=== PATIENT | female | born 2000 | race Caucasian/White ===

== ENCOUNTER 2022-07-22 14:56 | Inpatient (IN) ==
--- NOTE | 2022-07-22 15:11 | ED Triage Note ---
Date of Service July 22, 2022 History of Present Illness This patient was briefly evaluated while in triage. An abbreviated physical exam was performed. This patient is a 22-year-old Female with past medical history of anxiety and depression who presents to the ED for evaluation of "I just don't want to be alive anymore". Plan to take prescription anxiety/depression medication. No homicidal ideation Physical Exam VITALS: Vitals are noted on the nurse's note and reviewed by myself. GENERAL: This is a 22 year old white female, in no acute distress, nondiaphoretic, well-developed well-nourished. SKIN: No obvious rashes, edema, erythema HEAD: Normocephalic atraumatic. EYES: Conjunctivae without injection, sclerae without icterus. NECK: No JVD. LUNGS: No retractions or accessory muscle use. MUSCULOSKELETAL: Normal gait. NEURO: Patient was alert and oriented to person place and time. No focal neurological deficits. Initial orders for labs and / or imaging were placed and patient was placed in the waiting area until a bed is available. Please see further documentation for the full ED course.
[2022-07-22 15:44] LABS: Basophils # (auto) 0.04 K/uL (0-0.2); Basophils % (auto) 0.4 %; Eosinophils # (auto) 0.19 K/uL (0-0.50); Eosinophils % (auto) 2.1 %; Hematocrit (blood only) 40.5 % (34.1-44.9); Hemoglobin 13.6 g/dl (12.0-16.0); Immature Granulocytes # (auto) 0.03 K/uL (0.00-0.02); Immature Granulocytes % (auto) 0.3 %; Lymphocytes # (auto) 2.29 K/uL (1.2-3.4); Lymphocytes % (auto) 25.4 %; Mean Corpuscular Hemoglobin 30.5 pg (25.0-34.0); Mean Corpuscular Hgb Conc 33.6 g/dL (32.0-36.0); Mean Corpuscular Volume 90.8 fL (80.0-100.0); Mean Platelet Volume 9.3 fL (9.4-12.3); Monocytes % (auto) 5.5 %; Neutrophils # (auto) 5.98 K/uL (1.4-6.5); Neutrophils % (auto) 66.3 %; Platelet Count 359 K/uL (130-400); RDW Coefficient of Variation 12.6 % (11.5-14.5); RDW Standard Deviation 41.7 fL (36.4-46.3); Red Blood Count 4.46 M/uL (3.93-5.22); White Blood Count 9.03 K/ul (4.8-10.8)
[2022-07-22 15:49] LABS: Appearance Urine Cloudy (Clear); Bacteria Urine Automated 1+ (Negative); Blood Urine Negative (Negative); Color Urine Dark Yellow; Epithelial Cell Urine Auto >30 /lpf (0-5); Glucose Urine UA Negative (Negative); Ketones Urine 1+ (Negative); Leukocyte Esterase Urine Trace (Negative); Nitrite Urine Negative (Negative); Protein Urine 1+ (Negative); Specific Gravity Urine 1.038 (1.000-1.030); Urobilinogen Urine Negative (Negative); pH Urine 5.5 (4.5-7.5)
[2022-07-22 15:54] LABS: Bilirubin Urine 1+ (Negative)
[2022-07-22 16:05] LABS: Albumin Level 4.9 gm/dl (3.4-5.0); BUN Creatinine Ratio 14.3 (10-20); Bilirubin,Total 2.1 mg/dl (0.2-1.0); Calcium 9.4 mg/dl (8.5-10.1); Creatinine Clr Calc Pharmacy 96.5 ml/min; Est GFR (African American) 141.5 ml/min; Est GFR (Non-African American) 122.1 ml/min; Globulin 2.5 gm/dl (2.5-4.0); Potassium 3.5 mmol/L (3.5-5.1); Pregnancy Test, Serum Negative (Negative); Total Protein 7.4 gm/dl (6.0-8.3)
[2022-07-22 16:06] LABS: Acetaminophen < 3 ug/ml (10-30); Salicylate < 3.0 mg/dl (3.0-30)
[2022-07-22 16:22] LABS: Amphetamines+Metham, Urine Neg (Neg); Barbiturates, Urine Neg (Neg); Benzodiazepine, Urine Pos (Neg); Cocaine, Urine Neg (Neg); MDMA (Ecstacy), Urine Pos (Neg); Methadone, Urine Neg (Neg); Opiate, Urine Neg (Neg); Phencyclidine, Urine Neg (Neg)
--- NOTE | 2022-07-22 17:04 | Emergency Department Note ---
Impression & Plan Suicidal ideation Admit to [facility]. ED Provider Note NAME: RAMONA LUO AGE: 22 SEX: F ARRIVES VIA: Walk-In INFORMANT: Patient ED PROVIDER(S): Christel Lin DO CHIEF COMPLAINT: Thoughts of overdosing PLAN: Disposition: Admit to 3 [facility]. Condition: Stable MEDICAL DECISION MAKING: This is a 22-year-old female patient with a history of depression who presents to the emergency department explaining that she had plans to overdose on trazodone and Zoloft. She did not carry through with her plan. He was medically cleared here in the emergency department. She is willing to admit herself voluntarily for inpatient psychiatric care. She was evaluated by staff from [facility]. and will be admitted to the unit. Triage Nursing notes reviewed and agree with them. Vital Signs: reviewed and unremarkable Differential diagnosis: Mood disorder, thought disorder, suicidal ideation, substance abuse Diagnostics interpreted by me: Laboratory studies: See below HPI: 22/F arrives for evaluation of suicidal thoughts. The patient had plans to overdose on trazodone and Zoloft 2 days ago. The patient has felt incr easingly depressed recently. 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 She has felt increasingly overwhelmed and had plans to overdose on her trazodone and Zoloft. The patient has been depressed as it is coming up on the anniversary of her stepfather's suicide. The patient explained to the senior sourcing manager that she decided not to as her last conversation with her father was when he was intoxicated. ROS: See above HPI for pertinent positives & negatives. A total of 6 systems reviewed and were otherwise negative. 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 HOME MEDICATIONS:See list ALLERGIES:None VITALS:See Below PHYSICAL EXAMINATION: HEENT: Head - normocephalic and atraumatic Pupils are equal, round, and reactive to light. Extraocular eye muscles are intact, and sclera are anicteric. Nose - moist nasal mucosa without discharge. Mouth - moist buccal mucosa. Oropharynx is nonerythematous and there is no tonsillar exudate or edema noted. Neck: Supple; no cervical lymphadenopathy or thyromegaly Heart: Regular rate and rhythm. There is a normal S1 and S2 with no murmurs, clicks, or gallops appreciated. Lungs: Clear to auscultation bilaterally with no wheezes, rales, or rhonchi. Abdomen: Soft, completely nontender, nondistended, with good bowel sounds. There are no palpable pulsatile masses or hepatosplenomegaly. There is no guarding, rigidity, or rebound noted. Extremities: No evidence of cyanosis, clubbing, or edema. There are easily palpable peripheral pulses. Skin: warm and dry with good turgor and no rashes. Psych: The patient appears depressed with a flat affect. She does admit to suicidal thoughts with a plan to overdose. ED COURSE: Times/Reassessments: 1555: Patient was evaluated in room A7. A complete history and physical was performed. Laboratory studies were drawn as above. The patient was evaluated by the ED psychiatric casework specialist. COVID testing was performed. She is willing to admit herself voluntarily for inpatient psychiatric care. She was evaluated by staff from [facility]. 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 Beliefs That Will Affect Care: None Feels Safe at Home: Yes Assistive Devices: None Allergies Allergies Allergy/AdvReac Type Severity Reaction Status Date / Time No Known Allergies Allergy Unverified 07/22/22 18:48 Home Meds Home Medications Medication Instructions Recorded Confirmed sertraline 100 mg tablet 100 mg PO HS 07/22/22 07/22/22 trazodone 50 mg tablet 50 mg PO HS 07/22/22 07/22/22 Results & Data (ED) Vital Signs Vital Signs - 24 hr 07/22/22 15:11 Temperature 36.6 C Temperature Source Temporal Artery Scan Pulse Rate 105 H Pulse Rhythm Regular Pulse Strength Normal Respiratory Rate 20 Respiratory Effort / Characteristics Non-Labored Spontaneous Respiratory Depth Normal Respiratory Pattern Regular Blood Pressure 129/83 Blood Pressure Mean 98 Blood Pressure Position Sitting Pulse Oximetry 98 Oxygen Delivery Method Room Air Sepsis Recent Fever Within 48 Hours No Sepsis New/Unexplained Change in Mental Status N/A Sepsis Action Taken by Nursing No Action Required Laboratory Data Result diagrams: 07/22/22 15:30 07/22/22 15:30 Lab Results 07/22/22 07/22/22 07/22/22 Range/Units 15:30 15:30 15:30 WBC 9.03 (4.8-10.8) K/ul RBC 4.46 (3.93-5.22) M/uL Hgb 13.6 (12.0-16.0) g/dl Hct 40.5 (34.1-44.9) % MCV 90.8 (80.0-100.0) fL MCH 30.5 (25.0-34.0) pg MCHC 33.6 (32.0-36.0) g/dL RDW Std Deviation 41.7 (36.4-46.3) fL RDW Coeff of Anne Marie 12.6 (11.5-14.5) % Plt Count 359 (130-400) K/uL MPV 9.3 L (9.4-12.3) fL Immature Gran % (Auto) 0.3 % Neut % (Auto) 66.3 % Lymph % (Auto) 25.4 % [place] % (Auto) 5.5 % Eos % (Auto) 2.1 % Baso % (Auto) 0.4 % Neut # (Auto) 5.98 (1.4-6.5) K/uL Lymph # (Auto) 2.29 (1.2-3.4) K/uL [place] # (Auto) 0.50 (0.24-0.82) K/uL Eos # (Auto) 0.19 (0-0.50) K/uL Baso # (Auto) 0.04 (0-0.2) K/uL Immature Gran # (Auto) 0.03 H (0.00-0.02) K/uL Sodium 137 (136-145) mmol/L Potassium 3.5 (3.5-5.1) mmol/L Chloride 103 (98-107) mmol/L Carbon Dioxide 26 (21-32) mmol/L Anion Gap 8 (3-11) BUN 10 (6-23) mg/dl Creatinine 0.70 (0.6-1.2) mg/dl Est Cr Clr Drug Dosing 96.5 ml/min Est GFR ( Amer) 141.5 ml/min Est GFR (Non-Af Amer) 122.1 ml/min BUN/Creatinine Ratio 14.3 (10-20) Glucose 85 (70-99(Fasting)) mg/dl Calcium 9.4 (8.5-10.1) mg/dl Total Bilirubin 2.1 H (0.2-1.0) mg/dl AST 13 (13-39) U/L ALT 10 (7-52) U/L Alkaline Phosphatase 46 (34-104) U/L Total Protein 7.4 (6.0-8.3) gm/dl Albumin 4.9 (3.4-5.0) gm/dl Globulin 2.5 (2.5-4.0) gm/dl Albumin/Globulin Ratio 2.0 (0.9-2) TSH (0.300-4.500) uIu/ml HCG, Qual Negative (Negative) Urine Color Urine Appearance (Clear) Urine pH (4.5-7.5) Ur Specific [place] (1.000-1.030) Urine Protein (Negative) Urine Glucose (UA) (Negative) Urine Ketones (Negative) Urine Blood (Negative) Urine Nitrite (Negative) Urine Bilirubin (Negative) Urine Urobilinogen (Negative) Ur Leukocyte Esterase (Negative) Urine WBC (Auto) (0-5) /hpf Urine RBC (Auto) (0-4) /hpf U Hyaline Cast (Auto) (0-5) /lpf U Epithel Cells (Auto) (0-5) /lpf Urine Bacteria (Auto) (Negative) Salicylates (3.0-30) mg/dl Urine Opiates Screen (Neg) Ur Methadone, Qual (Neg) Acetaminophen (10-30) ug/ml Urine Barbiturates (Neg) Ur Phencyclidine (PCP) (Neg) U Amphetamin/Meth Scrn (Neg) MDMA (Ecstasy) Screen (Neg) U Benzodiazepines Scrn (Neg) Ur Cocaine Metabolite (Neg) U Marijuana (THC) Screen (Neg) Ethyl Alcohol mg/dL (<10.0) mg/dl SARS-CoV-2, RNA, NAAT (NEGATIVE) 07/22/22 07/22/22 07/22/22 Range/Units 15:30 15:30 15:30 WBC (4.8-10.8) K/ul RBC (3.93-5.22) M/uL Hgb (12.0-16.0) g/dl Hct (34.1-44.9) % MCV (80.0-100.0) fL MCH (25.0-34.0) pg MCHC (32.0-36.0) g/dL RDW Std Deviation (36.4-46.3) fL RDW Coeff of Anne Marie (11.5-14.5) % Plt Count (130-400) K/uL MPV (9.4-12.3) fL Immature Gran % (Auto) % Neut % (Auto) % Lymph % (Auto) % [place] % (Auto) % Eos % (Auto) % Baso % (Auto) % Neut # (Auto) (1.4-6.5) K/uL Lymph # (Auto) (1.2-3.4) K/uL [place] # (Auto) (0.24-0.82) K/uL Eos # (Auto) (0-0.50) K/uL Baso # (Auto) (0-0.2) K/uL Immature Gran # (Auto) (0.00-0.02) K/uL Sodium (136-145) mmol/L Potassium (3.5-5.1) mmol/L Chloride (98-107) mmol/L Carbon Dioxide (21-32) mmol/L Anion Gap (3-11) BUN (6-23) mg/dl Creatinine (0.6-1.2) mg/dl Est Cr Clr Drug Dosing ml/min Est GFR ( Amer) ml/min Est GFR (Non-Af Amer) ml/min BUN/Creatinine Ratio (10-20) Glucose (70-99(Fasting)) mg/dl Calcium (8.5-10.1) mg/dl Total Bilirubin (0.2-1.0) mg/dl AST (13-39) U/L ALT (7-52) U/L Alkaline Phosphatase (34-104) U/L Total Protein (6.0-8.3) gm/dl Albumin (3.4-5.0) gm/dl Globulin (2.5-4.0) gm/dl Albumin/Globulin Ratio (0.9-2) TSH 1.817 (0.300-4.500) uIu/ml HCG, Qual (Negative) Urine Color Urine Appearance (Clear) Urine pH (4.5-7.5) Ur Specific [place] (1.000-1.030) Urine Protein (Negative) Urine Glucose (UA) (Negative) Urine Ketones (Negative) Urine Blood (Negative) Urine Nitrite (Negative) Urine Bilirubin (Negative) Urine Urobilinogen (Negative) Ur Leukocyte Esterase (Negative) Urine WBC (Auto) (0-5) /hpf Urine RBC (Auto) (0-4) /hpf U Hyaline Cast (Auto) (0-5) /lpf U Epithel Cells (Auto) (0-5) /lpf Urine Bacteria (Auto) (Negative) Salicylates < 3.0 L (3.0-30) mg/dl Urine Opiates Screen (Neg) Ur Methadone, Qual (Neg) Acetaminophen < 3 L (10-30) ug/ml Urine Barbiturates (Neg) Ur Phencyclidine (PCP) (Neg) U Amphetamin/Meth Scrn (Neg) MDMA (Ecstasy) Screen (Neg) U Benzodiazepines Scrn (Neg) Ur Cocaine Metabolite (Neg) U Marijuana (THC) Screen (Neg) Ethyl Alcohol mg/dL < 10.0 (<10.0) mg/dl SARS-CoV-2, RNA, NAAT (NEGATIVE) 07/22/22 07/22/22 07/22/22 Range/Units 15:30 15:30 15:30 WBC (4.8-10.8) K/ul RBC (3.93-5.22) M/uL Hgb (12.0-16.0) g/dl Hct (34.1-44.9) % MCV (80.0-100.0) fL MCH (25.0-34.0) pg MCHC (32.0-36.0) g/dL RDW Std Deviation (36.4-46.3) fL RDW Coeff of Anne Marie (11.5-14.5) % Plt Count (130-400) K/uL MPV (9.4-12.3) fL Immature Gran % (Auto) % Neut % (Auto) % Lymph % (Auto) % [place] % (Auto) % Eos % (Auto) % Baso % (Auto) % Neut # (Auto) (1.4-6.5) K/uL Lymph # (Auto) (1.2-3.4) K/uL [place] # (Auto) (0.24-0.82) K/uL Eos # (Auto) (0-0.50) K/uL Baso # (Auto) (0-0.2) K/uL Immature Gran # (Auto) (0.00-0.02) K/uL Sodium (136-145) mmol/L Potassium (3.5-5.1) mmol/L Chloride (98-107) mmol/L Carbon Dioxide (21-32) mmol/L Anion Gap (3-11) BUN (6-23) mg/dl Creatinine (0.6-1.2) mg/dl Est Cr Clr Drug Dosing ml/min Est GFR ( Amer) ml/min Est GFR (Non-Af Amer) ml/min BUN/Creatinine Ratio (10-20) Glucose (70-99(Fasting)) mg/dl Calcium (8.5-10.1) mg/dl Total Bilirubin (0.2-1.0) mg/dl AST (13-39) U/L ALT (7-52) U/L Alkaline Phosphatase (34-104) U/L Total Protein (6.0-8.3) gm/dl Albumin (3.4-5.0) gm/dl Globulin (2.5-4.0) gm/dl Albumin/Globulin Ratio (0.9-2) TSH (0.300-4.500) uIu/ml HCG, Qual (Negative) Urine Color Dark Yellow Urine Appearance Cloudy A (Clear) Urine pH 5.5 (4.5-7.5) Ur Specific [place] 1.038 H (1.000-1.030) Urine Protein 1+ H (Negative) Urine Glucose (UA) Negative (Negative) Urine Ketones 1+ H (Negative) Urine Blood Negative (Negative) Urine Nitrite Negative (Negative) Urine Bilirubin 1+ H (Negative) Urine Urobilinogen Negative (Negative) Ur Leukocyte Esterase Trace H (Negative) Urine WBC (Auto) 1-5 (0-5) /hpf Urine RBC (Auto) 5-10 H (0-4) /hpf U Hyaline Cast (Auto) 5-10 H (0-5) /lpf U Epithel Cells (Auto) >30 H (0-5) /lpf Urine Bacteria (Auto) 1+ H (Negative) Salicylates (3.0-30) mg/dl Urine Opiates Screen Neg (Neg) Ur Methadone, Qual Neg (Neg) Acetaminophen (10-30) ug/ml Urine Barbiturates Neg (Neg) Ur Phencyclidine (PCP) Neg (Neg) U Amphetamin/Meth Scrn Neg (Neg) MDMA (Ecstasy) Screen Pos H (Neg) U Benzodiazepines Scrn Pos H (Neg) Ur Cocaine Metabolite Neg (Neg) U Marijuana (THC) Screen Neg (Neg) Ethyl Alcohol mg/dL (<10.0) mg/dl SARS-CoV-2, RNA, NAAT NEGATIVE (NEGATIVE) Administered Medications Sertraline HCl (Sertraline Hcl 100 Mg Tablet) 150 mg PO DAVID Stop: 08/21/22 20:59 Last Admin: 07/22/22 22:11 Dose: 150 mg Documented By: VERNELL Trazodone HCl (Trazodone Hcl 50 Mg Tab) 50 mg PO DAVID Stop: 08/21/22 20:59 Last Admin: 07/22/22 22:12 Dose: 50 mg Documented By: VERNELL Discharge Plan Visit Data Chief Complaint: Mental Health Evaluation Stated Complaint: MENTAL HEALTH EVALUATION ED Provider: Christel Lin Discharge Problem: Suicidal ideation Patient Disposition: Home - Self-Care Discharge Instructions Interventions: ED Discharge Assessment Last Done: 07/22/22 17:54
[2022-07-22] MEDS ORDERED: SODIUM CHLORIDE 0.65% NA SOLN 45 ML (OCEAN) PRN (17:40)
[2022-07-22] MEDS ORDERED: ACETAMINOPHEN 325 MG TAB PO PRN (17:40)
[2022-07-22] MEDS ORDERED: hydrOXYzine HCl 25 MG TAB PO PRN ×2 (17:40)
[2022-07-22] MEDS ORDERED: BISMUTH SUBSALICYLATE LIQD 236 ML PO PRN (17:40)
[2022-07-22] MEDS ORDERED: ALUMINUM/MAGNESIUM SUSP 30 ML UDC PO PRN (17:40)
[2022-07-22] MEDS ORDERED: MAGNESIUM HYDROXIDE SUSP 30 ML UDC PO PRN (17:40)
[2022-07-22] MEDS: SERTRALINE HCL 100 MG TABLET PO SCH (22:11)
[2022-07-22] MEDS: traZODone HCL 50 MG TAB PO SCH (22:12)
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
[2022-07-23] MEDS: SERTRALINE HCL 100 MG TABLET PO SCH (22:06)
[2022-07-23] MEDS: traZODone HCL 50 MG TAB PO SCH (22:06)
--- NOTE | 2022-07-24 16:39 | Psychiatric Progress Note ---
Date of Service July 24, 2022 Impression / Recommendations Impression 22 yo female with a history of depression following the suicide of step father in mid-teens, worsening SI in the context of stress of school, isolation from friends/family, and anniversary of stepfather's . (1) Major depression, recurrent: Plan 07/24/22: continue current medication and treatment plan. 07/23/22: The patient was admitted to the [facility] ([facility] mental health unit) on q15 min checks (behavioral with suicide precautions) for safety. The patient will participate in group, recreational, and milieu therapies and will be offered additional individual and family sessions as clinically appropriate. Risks/benefits/alternatives reviewed re: current medications. She agrees to increase Zoloft 150 mg po daily and continue trazodone. 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 Chief Complaint "not ready to deal with my family yet." Review of Systems Sleep Information Total Hours of Sleep: 6.5 Meal Information Percent Meal Consumed - Breakfast: 50 Percent Meal Consumed - Lunch: 50 Percent Meal Consumed - Dinner: 75 Subjective Subjective Patient was seen & assessed and interval progress reviewed with treatment team. Cooperative with unit routine/meds. Denies side effects. States has had some mild headache but attributes to change in caffeine intake in hospital. Physical Exam Psychiatric Orientation: alert and oriented x 3 Apperance: appropriately dressed and appropriately groomed Eye Contact: good eye contact Motor Behavior: no abnormal motor movements Speech: normal rate/rhythm/volume of speech Affect: + depressed affect Mood: + depressed mood Thought Process: goal directed thought process Thought Content: reality based without delusions Suicidal Thoughts: denies suicidal plan (on unit) and denies suicidal intent; + reports suicidal thoughts Homicidal Thoughts: denies homicidal thoughts Hallucinations: no auditory hallucinations and no visual hallucinations Cognition: attention grossly intact and language grossly intact Estimated Intelligence: consistent with education level Insight: + fair insight Judgement: + limited judgement Vital Signs (Past 24 Hours) Last Vital Signs Temp 36.8 C 07/24/22 06:35 Pulse 82 07/24/22 06:36 Resp 16 07/24/22 06:35 BP 98/60 L 07/24/22 06:36 Pulse Ox 99 07/22/22 18:27 O2 Del Method 07/22/22 18:27 Results & Data ([facility]) Current Inpatient Medications Current Inpatient Medications: Current Inpatient Medications Acetaminophen (Acetaminophen 325 Mg Tab) 650 mg PO Q4H PRN PRN Reason: Headache or Minor Fever Stop: 08/21/22 17:39 Al Hydrox/Mg Hydrox/Simethicone (Aluminum/Magnesium Susp 30 Ml Udc) 30 ml PO Q4H PRN PRN Reason: GI Upset Stop: 08/21/22 17:39 Bismuth Subsalicylate (Bismuth Subsalicylate Liqd 236 Ml) 15 ml PO PRN PRN PRN Reason: Loose Stool Stop: 08/21/22 17:39 Hydroxyzine HCl (Hydroxyzine Hcl 25 Mg Tab) 50 mg PO HSZ PRN PRN Reason: Insomnia Stop: 08/21/22 17:39 Hydroxyzine HCl (Hydroxyzine Hcl 25 Mg Tab) 25 mg PO Q4H PRN PRN Reason: Anxiety Stop: 08/21/22 17:39 Magnesium Hydroxide (Magnesium Hydroxide Susp 30 Ml Udc) 30 ml PO DAILY PRN PRN Reason: Constipation Stop: 08/21/22 17:39 Sertraline HCl (Sertraline Hcl 100 Mg Tablet) 150 mg PO HS DAVID Stop: 08/21/22 20:59 Last Admin: 07/23/22 22:06 Dose: 150 mg Sodium Chloride (Sodium Chloride 0.65% Na Soln 45 Ml ([employer])) 1 - 2 sprays NA PRN PRN PRN Reason: Nasal Dryness/Congestion Stop: 08/21/22 17:39 Trazodone HCl (Trazodone Hcl 50 Mg Tab) 50 mg PO HS DAVID Stop: 08/21/22 20:59 Last Admin: 07/23/22 22:06 Dose: 50 mg Mental Health & Subst Abuse Tx Psychiatrist Name of Psychiatrist: [facility] Psychiatrist's Therapist Name of Therapist: Marito Parnell Therapist's Post Discharge Appointments Primary Care Physician Name Of Family Doctor: PAMELA
[2022-07-24] MEDS: traZODone HCL 50 MG TAB PO SCH (22:12)
[2022-07-24] MEDS: SERTRALINE HCL 100 MG TABLET PO SCH (22:12)
--- NOTE | 2022-07-25 13:45 | Psychiatric Progress Note ---
Date of Service July 25, 2022 Impression / Recommendations Impression 22 yo female with a history of depression following the suicide of step father in mid-teens, worsening SI in the context of stress of school, isolation from friends/family, and anniversary of stepfather's . 07/24/22: ongoing ambivalence about life, excessive guilt about not checking on step father the day he . (1) Major depression, recurrent: Plan 07/25/22: consider Zoloft titration vs. augmentation, patient prefers to discuss tomorrow. Is anxious about classes. 07/24/22: continue current medication and treatment plan. 07/23/22: The patient was admitted to the [facility] ([facility] mental [facility] unit) on q15 min checks (behavioral with suicide precautions) for safety. The patient will participate in group, recreational, and milieu therapies and will be offered additional individual and family sessions as clinically appropriate. Risks/benefits/alternatives reviewed re: current medications. She agrees to increase Zoloft 150 mg po daily and continue trazodone. 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 Chief Complaint "I called my dad" Review of Systems Sleep Information Total Hours of Sleep: 6.5 Meal Information Percent Meal Consumed - Breakfast: 75 Percent Meal Consumed - Lunch: 40 Percent Meal Consumed - Dinner: 100 Subjective Subjective Patient was seen & assessed and interval progress reviewed with nursing and social work. today is anniversary of step father's . She still doesn't see herself as wanting to be alive, "I play out alot of scenarios in my head>' and admits that it seems easier to be . Denies any intent to harm self on unit. tolerating medications. Physical Exam Psychiatric Orientation: alert and oriented x 3 Apperance: appropriately dressed and appropriately groomed Eye Contact: good eye contact Motor Behavior: no abnormal motor movements Speech: normal rate/rhythm/volume of speech Affect: + depressed affect Mood: + depressed mood Thought Process: goal directed thought process Thought Content: reality based without delusions Suicidal Thoughts: denies suicidal plan (on unit) and denies suicidal intent; + reports suicidal thoughts Homicidal Thoughts: denies homicidal thoughts Hallucinations: no auditory hallucinations and no visual hallucinations Cognition: attention grossly intact and language grossly intact Estimated Intelligence: consistent with education level Insight: + fair insight Judgement: + limited judgement Vital Signs (Past 24 Hours) Last Vital Signs Temp 36.8 C 07/25/22 06:44 Pulse 80 07/25/22 06:44 Resp 16 07/25/22 06:44 BP 99/63 L 07/25/22 06:44 Pulse Ox 99 07/22/22 18:27 O2 Del Method 07/22/22 18:27 Results & Data ([facility]) Current Inpatient Medications Current Inpatient Medications: Current Inpatient Medications Acetaminophen (Acetaminophen 325 Mg Tab) 650 mg PO Q4H PRN PRN Reason: Headache or Minor Fever Stop: 08/21/22 17:39 Al Hydrox/Mg Hydrox/Simethicone (Aluminum/Magnesium Susp 30 Ml Udc) 30 ml PO Q4H PRN PRN Reason: GI Upset Stop: 08/21/22 17:39 Bismuth Subsalicylate (Bismuth Subsalicylate Liqd 236 Ml) 15 ml PO PRN PRN PRN Reason: Loose Stool Stop: 08/21/22 17:39 Hydroxyzine HCl (Hydroxyzine Hcl 25 Mg Tab) 50 mg PO HSZ PRN PRN Reason: Insomnia Stop: 08/21/22 17:39 Hydroxyzine HCl (Hydroxyzine Hcl 25 Mg Tab) 25 mg PO Q4H PRN PRN Reason: Anxiety Stop: 08/21/22 17:39 Magnesium Hydroxide (Magnesium Hydroxide Susp 30 Ml Udc) 30 ml PO DAILY PRN PRN Reason: Constipation Stop: 08/21/22 17:39 Sertraline HCl (Sertraline Hcl 100 Mg Tablet) 150 mg PO HS DAVID Stop: 08/21/22 20:59 Last Admin: 07/24/22 22:12 Dose: 150 mg Sodium Chloride (Sodium Chloride 0.65% Na Soln 45 Ml ([place])) 1 - 2 sprays NA PRN PRN PRN Reason: Nasal Dryness/Congestion Stop: 08/21/22 17:39 Trazodone HCl (Trazodone Hcl 50 Mg Tab) 50 mg PO HS DAVID Stop: 08/21/22 20:59 Last Admin: 07/24/22 22:12 Dose: 50 mg Mental Health & Subst Abuse Tx Psychiatrist Name of Psychiatrist: [facility] Psychiatrist's Therapist Name of Therapist: Marito Parnell Therapist's Post Discharge Appointments Primary Care Physician Name Of Family Doctor: Albert
[2022-07-25] MEDS: traZODone HCL 50 MG TAB PO SCH (21:56)
[2022-07-25] MEDS: SERTRALINE HCL 100 MG TABLET PO SCH (21:57)
--- NOTE | 2022-07-26 12:35 | Discharge Summary ---
Date of Service July 26, 2022 History of Present Illness The patient contacted [facility] re: her SI with plan to OD on trazodone and Zoloft and was directed to the ED. She told ED CM that she called her father a few nights ago to say goodbye but ultimately decided she didn't want that to be their last interaction. It should be noted that her step-father committed suicide when she was 14 yo and 07/25 is the anniversary of his . She has endorsed classic symptoms of depression including anergia, anhedonia, crying spells, sleep disturbance and changes in appetite. She feels her anxiety is worse currently but at baseline only has mild performance anxiety "like anybody before a speech." The patient denied any manic episodes but reports problems falling asleep without trazodone. She had reported a 40 lb weight loss but sounds like most was during undergrad due to combination of walking during study abroad in [place] in 2019 and later due to nervous stomach. She denies GERD or intentional restricting or other ED behaviors. Physical Exam Psychiatric See admission H&P and DOD assessment. Vital Signs (Past 24 Hours) Last Vital Signs Temp 36.8 C 07/26/22 06:46 Pulse 92 H 07/26/22 06:47 Resp 16 07/26/22 06:46 BP 97/61 L 07/26/22 06:47 Pulse Ox 99 07/22/22 18:27 O2 Del Method 07/22/22 18:27 Principal Diagnosis major depressive disorder Psychiatric Data See daily stay summary. 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 Medication changes included titration of Zoloft to 150 mg daily and they tolerated this well. A family session was held with her local support and safety plan was completed prior to discharge which included her only having 1 week supply of meds at time. Day of Discharge Assessment Today the patient voices readiness for discharge. They note improvement in mood and deny thoughts to harm self or others. Thoughts remain organized and they are improved from admission. There is no evidence of psychosis. They agree to take mediations as prescribed and keep follow-up appointments. They are stable for discharge to outpatient level of care. Transition of Care Transition Of Care Record: was reviewed with the patient Advance Directives Advance Directives Information Provided: Yes Advance Directives: No Mental Health Advance Directive: No Advance Directives on File: No Living Will: No Power of Rubber Goods Repairer: No Advance Directives Reason:: Declines as Mental Health Visit. Suicide Risk Level Suicide Risk Level Comments: Suicide risk at discharge is deemed low as the patient is no longer requiring 24-hr monitoring, has a safety plan, and is free of suicidal ideation at discharge. Risk Factors Assessment : Yes Do You Have Access To A Gun?: No Mental Health Diagnoses: Yes Family History of Suicide: Yes (step father (not biologic but traumatic)) Previous Psychiatric Hospitalization: No Protective Factors Assessment Supportive Family: Yes Tobacco Cessation at Discharge Tobacco Cessation Medication Prescribed at Discharge: Not Applicable/Non-Smoker Total Time Total Time Spent: Greater Than 30 Minutes Total Time Includes: Examination of the patient, Discharge Planning and Medication Reconciliation Discharge Data Lab Results 07/22/22 07/22/22 07/22/22 15:30 15:30 15:30 WBC 9.03 RBC 4.46 Hgb 13.6 Hct 40.5 MCV 90.8 MCH 30.5 MCHC 33.6 RDW Std Deviation 41.7 RDW Coeff of Anne Marie 12.6 Plt Count 359 MPV 9.3 L Immature Gran % (Auto) 0.3 Neut % (Auto) 66.3 Lymph % (Auto) 25.4 Worth % (Auto) 5.5 Eos % (Auto) 2.1 Baso % (Auto) 0.4 Neut # (Auto) 5.98 Lymph # (Auto) 2.29 Worth # (Auto) 0.50 Eos # (Auto) 0.19 Baso # (Auto) 0.04 Immature Gran # (Auto) 0.03 H Sodium 137 Potassium 3.5 Chloride 103 Carbon Dioxide 26 Anion Gap 8 BUN 10 Creatinine 0.70 Est Cr Clr Drug Dosing 96.5 Est GFR ( Amer) 141.5 Est GFR (Non-Af Amer) 122.1 BUN/Creatinine Ratio 14.3 Glucose 85 Calcium 9.4 Total Bilirubin 2.1 H AST 13 ALT 10 Alkaline Phosphatase 46 Total Protein 7.4 Albumin 4.9 Globulin 2.5 Albumin/Globulin Ratio 2.0 TSH HCG, Qual Negative Urine Color Urine Appearance Urine pH Ur Specific [place] Urine Protein Urine Glucose (UA) Urine Ketones Urine Blood Urine Nitrite Urine Bilirubin Urine Urobilinogen Ur Leukocyte Esterase Urine WBC (Auto) Urine RBC (Auto) U Hyaline Cast (Auto) U Epithel Cells (Auto) Urine Bacteria (Auto) Salicylates Urine Opiates Screen Ur Methadone, Qual Acetaminophen Urine Barbiturates Ur Phencyclidine (PCP) U Amphetamin/Meth Scrn MDMA (Ecstasy) Screen U Benzodiazepines Scrn Ur Cocaine Metabolite U Marijuana (THC) Screen Ethyl Alcohol mg/dL SARS-CoV-2, RNA, NAAT 07/22/22 07/22/22 07/22/22 15:30 15:30 15:30 WBC RBC Hgb Hct MCV MCH MCHC RDW Std Deviation RDW Coeff of Anne Marie Plt Count MPV Immature Gran % (Auto) Neut % (Auto) Lymph % (Auto) Worth % (Auto) Eos % (Auto) Baso % (Auto) Neut # (Auto) Lymph # (Auto) Worth # (Auto) Eos # (Auto) Baso # (Auto) Immature Gran # (Auto) Sodium Potassium Chloride Carbon Dioxide Anion Gap BUN Creatinine Est Cr Clr Drug Dosing Est GFR ( Amer) Est GFR (Non-Af Amer) BUN/Creatinine Ratio Glucose Calcium Total Bilirubin AST ALT Alkaline Phosphatase Total Protein Albumin Globulin Albumin/Globulin Ratio TSH 1.817 HCG, Qual Urine Color Urine Appearance Urine pH Ur Specific [place] Urine Protein Urine Glucose (UA) Urine Ketones Urine Blood Urine Nitrite Urine Bilirubin Urine Urobilinogen Ur Leukocyte Esterase Urine WBC (Auto) Urine RBC (Auto) U Hyaline Cast (Auto) U Epithel Cells (Auto) Urine Bacteria (Auto) Salicylates < 3.0 L Urine Opiates Screen Ur Methadone, Qual Acetaminophen < 3 L Urine Barbiturates Ur Phencyclidine (PCP) U Amphetamin/Meth Scrn MDMA (Ecstasy) Screen U Benzodiazepines Scrn Ur Cocaine Metabolite U Marijuana (THC) Screen Ethyl Alcohol mg/dL < 10.0 SARS-CoV-2, RNA, NAAT 07/22/22 07/22/22 07/22/22 15:30 15:30 15:30 WBC RBC Hgb Hct MCV MCH MCHC RDW Std Deviation RDW Coeff of Anne Marie Plt Count MPV Immature Gran % (Auto) Neut % (Auto) Lymph % (Auto) Worth % (Auto) Eos % (Auto) Baso % (Auto) Neut # (Auto) Lymph # (Auto) Worth # (Auto) Eos # (Auto) Baso # (Auto) Immature Gran # (Auto) Sodium Potassium Chloride Carbon Dioxide Anion Gap BUN Creatinine Est Cr Clr Drug Dosing Est GFR ( Amer) Est GFR (Non-Af Amer) BUN/Creatinine Ratio Glucose Calcium Total Bilirubin AST ALT Alkaline Phosphatase Total Protein Albumin Globulin Albumin/Globulin Ratio TSH HCG, Qual Urine Color Dark Yellow Urine Appearance Cloudy A Urine pH 5.5 Ur Specific [place] 1.038 H Urine Protein 1+ H Urine Glucose (UA) Negative Urine Ketones 1+ H Urine Blood Negative Urine Nitrite Negative Urine Bilirubin 1+ H Urine Urobilinogen Negative Ur Leukocyte Esterase Trace H Urine WBC (Auto) 1-5 Urine RBC (Auto) 5-10 H U Hyaline Cast (Auto) 5-10 H U Epithel Cells (Auto) >30 H Urine Bacteria (Auto) 1+ H Salicylates Urine Opiates Screen Neg Ur Methadone, Qual Neg Acetaminophen Urine Barbiturates Neg Ur Phencyclidine (PCP) Neg U Amphetamin/Meth Scrn Neg MDMA (Ecstasy) Screen Pos H U Benzodiazepines Scrn Pos H Ur Cocaine Metabolite Neg U Marijuana (THC) Screen Neg Ethyl Alcohol mg/dL SARS-CoV-2, RNA, NAAT NEGATIVE Hospital Course (1) Major depression, recurrent: Plan 07/25/22: consider Zoloft titration vs. augmentation, patient prefers to discuss tomorrow. Is anxious about classes. 07/24/22: continue current medication and treatment plan. 07/23/22: The patient was [facility] mental [facility] unit) on q15 min checks (behavioral with suicide precautions) for safety. The patient will participate in group, recreational, and milieu therapies and will be offered additional individual and family sessions as clinically appropriate. Risks/benefits/alternatives reviewed re: current medications. She agrees to increase Zoloft 150 mg po daily and continue trazodone. Mental Health & Subst Abuse Tx Psychiatrist Name of Psychiatrist: [facility] Psychiatrist's Date of Appointment with Psychiatrist: 08/08/22 Time of Appointment with Psychiatrist: 10:15 AM Psychiatric Appointment Comment: [address] [facility] [place] [address] Therapist Name of Therapist: [facility] Therapist's Date of Therapist Appointment: 08/02/22 Time of Therapist Appointment: 9:00 AM Therapy Appointment Comment: [place] [id number] Post Discharge Appointments Primary Care Physician Name Of Family Doctor: [facility] Primary Care Time of Appointment with PCP: Follow up with PCP as needed. [facility] Tobacco Cessation Medication Prescribed at Discharge: Not Applicable/Non-Smoker Other #1: Name of Aftercare Appointment: [facility] Phone Number of Aftercare Appointment: [phone] Date of Aftercare Appointment: 07/29/22 Time of Aftercare Appointment: 9:30 AM Aftercare Appointment Comment: Via Zoom - check [facility] email for link. Discharge Plan Discharge Items Patient Disposition: Home - Self-Care Reason For Visit: MDD Discharge Diagnosis: major depressive disorder Activity: Resume your previous activity Non-emergency contact: Primary Care Provider Call non-emergency contact if: you have any medication questions and your symptoms worsen Follow-up/Referrals: PCP,NO [Primary Care Provider] - Diet: Regular Addtl Attending Provider Instructions: SPECIAL CARE INSTRUCTIONS: 1. Follow through with your scheduled aftercare appointments. If unable to keep an appointment, please call to reschedule. 2. Take your medication only as prescribed. Medication should not be changed or stopped without the approval of your doctor. In the event of worsening symptoms or concerns about side effects, contact your doctor immediately. 3. Utilize new healthy coping skills, anger management skills, and stress management skills learned during your hospitalization. Journal feelings and process them with a support person. Identify stressors or situations that may result in relapse, deterioration or inappropriate behaviors and develop a plan to deal with those issues. 4. If your coping skills are ineffective and you are in crisis, contact your outpatient providers for direction. If unable to reach your providers, please call the [facility] CRISIS LINE AT , go to the [facility] walk-in center at [address], [address], [place], or go to the closest Emergency Room. 5. Avoid alcohol and un-prescribed drugs. 6. You have been provided with the Mental Health Advance Directives Pamphlet for your review. 7. Your condition is stable for discharge to outpatient level of care, but recovery is an ongoing process. Ifthoughts to harm yourself or others return, follow the safety plan developed during your stay. Planning for a safe return home includes securing weapons. Our treatment team recommends weaponsbe removed from the home until your outpatient provider reassesses your progress. In rare cases where the items themselvescannot be removed, guns and ammunitionshould be secured separatelyand keys stored by a reliable personoutside of the home. If you were admitted on an involuntary commitment, the police or other legal authorities may be involved in this process. AFTERCARE APPOINTMENTS: * Please call your insurance company prior to your scheduled appointment to confirm your aftercare providers are covered. Take your insurance information to your ap pointments. WHO TO CALL AND WHEN: Medical Emergencies: For questions or emergencies related to your hospital stay, please contact the Inpatient Behavioral Health Unit at [phone]. A swimming coach is on-call 02/06 for the Behavioral Health Unit for emergencies At any time you feel your situation is an emergency, you may also call 911 immediately. Pending Studies at Discharge: No Stand-Alone Forms: My [facility] Taskmit, Smoking Cessation Medications and DC Order Prescriptions: New sertraline 100 mg Tablet 150 mg PO HS 30 Days Qty: 45 0RF Continued trazodone 50 mg tablet 50 mg PO HS Qty: 1 0RF Discontinued sertraline 100 mg tablet 100 mg PO HS Discharge Orders: Discharge Order (Routine); Ordered 07/26/22 Ordered By: Carmen Campbell Admission Data Admit Date/Time: 07/22/22 18:01 Attending Provider: Carmen Campbell Admit Provider: Carmen Campbell Primary Care Provider: PCP,NO Other Interventions: Discharge Summary Assessment (RN) Last Done: 07/26/22 14:59 PSY Interdisciplinary Discharge Planning Last Done: 07/26/22 15:43 Coding Level of Care Code 50075 D/C day mgmt > 30 min Diagnoses Major depression, recurrent F33.9
== END 2022-07-26 15:50 | disposition home or self-care (01) | DRG 885 ==
LOC: ED 14:56 → 3S 18:01

== ENCOUNTER 2023-07-03 18:57 | Inpatient (IN) ==
--- NOTE | 2023-07-03 19:15 | Emergency Department Note ---
Impression & Plan Intentional overdose, Suicidal ideation, Anxiety, QT prolongation ED Provider Note NAME: RAMONA LUO AGE: 23 SEX: F : 2000 ARRIVES VIA: Walk-In INFORMANT: [Patient][, ] ED PROVIDER(S): [Larry Gonzalez MD] CHIEF COMPLAINT: Overdose MEDICAL DECISION MAKING: Patient presents due to concern for overdose of 16 to 18 total of 50 mg extended release trazodone. I did speak with poison control who stated the patient would need at least 12- hour observation. Magnesium for prolonged QTc. The patient's QTc is 499 and th e patient was ordered 2 g of magnesium to be given over 1 hour. Repeat EKG pending. The patient did have an IV established blood work is obtained along with urinalysis urine drug screen as well as toxicology screens. Patient has a normal white count H&H and platelet count. Mild hypokalemia. Alize ctrolytes are unremarkable. TSH is elevated but free T4 is normal. Urinalysis shows ketones. The patient did receive IV fluids. I did speak with the on-call hospitalist Dr. Mota given the patient's prolonged QT trazodone overdose and magnesium administration. The patient was ordered additional 1 g of IV magnesium as the patient's QTc was still prolonged on repeat EKG Prior /Outside records reviewed: [none] Differential diagnosis: Mood disorder, infection, hypoglycemia, electrolyte abnormalities, cardiac sources, intracerebral event, toxicologic, trauma, neurologic, as well as other pathologies. Diagnostics, as interpreted by me: ECG: Normal sinus rhythm, rate of 76, normal IL and QRS, prolonged QTc of 499, normal axis no ST elevations Repeat EKG interpreted by me Normal sinus rhythm, rate of 73, normal IL QRS, prolonged QTc. No ST elevations. Cardiac monitoring: An order was placed for continuous cardiac monitoring. The monitor shows a rate of 78 with sinus rhythm. [Patient was placed on pulse oximetry] Medical decision rules: [none] Imaging studies: See below HPI: Patient presents due to concern for overdose. The patient states that she took approximately 16 to 1850 mg extended release trazodone about an hour prior to arrival. Patient denies any chest pains or shortness of breath. The patient states that she did not do with the intent to kill herself but she also has been more apathetic about life in general. Patient has prior history of suicida l ideation but has never attempted or acted on anything before. 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 The patient was in [facility] working a lot from over the summer. Patient denies taking anything else inappropriately today. She denies any alcohol tobacco or drug use. The patient calls to say "moment of weakness." Patient did have a therapy appointment tomorrow. Patient has been inpatient before and had been here before 1 year ago to 3 S. patient does feel safe at home. She states that her sleep is appropriate but appetite is poor. She denies any HI or AVH. PAST MEDICAL HISTORY: [See Below] PAST SURGICAL HISTORY: [See Below] SOCIAL HISTORY: [See Below] HOME MEDICATIONS: [See Below] ALLERGIES: [See Below] VITALS: [See Below] PHYSICAL EXAMINATION: GENERAL: NAD, non-toxic. EYE EXAM: Normal conjunctiva. PERRL, no anisocoria and EOM's grossly intact w/o pain. OROPHARYNX: Moist mucus membranes, grossly normal dentition. NECK: Supple, no nuchal rigidity, no adenopathy, non-tender. No signs of meningismus. FROM of the neck with good chin to chest and neck extension. No stridor. LUNGS: Clear to auscultation. Normal chest wall mechanics. HEART: NSR, no MRG. ABDOMEN: Abdomen soft, non-tender, no masses, no rebound or guarding. BACK: No CVA TTP. SKIN: No rashes and no bruising. UPPER EXTREMITIES: Upper extremities are grossly normal. LOWER EXTREMITIES: Grossly normal, no edema. NEURO EXAM: A&O x3, cranial nerves II-XII grossly intact, normal speech, moves all 4 extremities. Psych: Denies SI HI or AVH. Past Med/Surg History Medical History Anxiety Major depression, recurrent Surgical History No pertinent past surgical history Family History Other Family history non-contributory Social History Smoking Status: Never smoker Hx Alcohol Use: Yes Hx Substance Use: No Preferred Language: Slovak Communication Ability: Effective Manager Required: No Beliefs That Will Affect Care: None Current Living Situation: Other Current Living Situation Comment: college student Feels Safe at Home: Yes Assistive Devices: None Allergies Allergies Allergy/AdvReac Type Severity Reaction Status Date / Time No Known Allergies Allergy Unverified 07/22/22 18:48 Home Meds Home Medications Medication Instructions Recorded Confirmed bupropion HCl 100 mg tablet,12 hr 100 mg PO QAM 07/03/23 07/03/23 sustained-release buspirone 10 mg tablet 10 mg PO BID 07/03/23 07/03/23 sertraline 100 mg tablet 200 mg PO DAILY 07/03/23 07/03/23 Previous Rx's Medication Instructions Recorded trazodone 50 mg tablet 50 mg PO HS #1 tab 07/26/22 Results & Data (ED) Vital Signs Vital Signs - 24 hr 07/03/23 19:00 07/03/23 19:12 07/03/23 19:12 Temperature 36.6 C Temperature Source Temporal Artery Scan Pulse Rate 101 H 76 Pulse Rate [Apical] 71 Respiratory Rate 18 17 17 Respiratory Effort / Characteristics Non-Labored Spontaneous Non-Labored Respiratory Depth Normal Normal Respiratory Pattern Regular Regular Blood Pressure 128/87 Blood Pressure [Left Arm] 115/76 Blood Pressure Mean 100 Blood Pressure Mean [Left Arm] 89 Blood Pressure Position Semi-fowlers Pulse Oximetry 98 99 99 Oxygen Delivery Method Room Air Room Air Room Air Sepsis Recent Fever Within 48 Hours No Sepsis New/Unexplained Change in Mental Status N/A Sepsis Action Taken by Nursing No Action Required 07/03/23 19:51 07/03/23 20:00 07/03/23 20:30 Temperature Temperature Source Pulse Rate 72 80 70 Pulse Rate [Apical] Respiratory Rate 13 20 17 Respiratory Effort / Characteristics Respiratory Depth Respiratory Pattern Blood Pressure 113/68 99/61 L Blood Pressure [Left Arm] Blood Pressure Mean 83 73 Blood Pressure Mean [Left Arm] Blood Pressure Position Pulse Oximetry 99 97 96 Oxygen Delivery Method Room Air Room Air Room Air Sepsis Recent Fever Within 48 Hours Sepsis New/Unexplained Change in Mental Status Sepsis Action Taken by Nursing 07/03/23 21:00 Temperature Temperature Source Pulse Rate 83 Pulse Rate [Apical] Respiratory Rate 22 Respiratory Effort / Characteristics Respiratory Depth Respiratory Pattern Blood Pressure 114/64 Blood Pressure [Left Arm] Blood Pressure Mean 80 Blood Pressure Mean [Left Arm] Blood Pressure Position Pulse Oximetry 96 Oxygen Delivery Method Room Air Sepsis Recent Fever Within 48 Hours Sepsis New/Unexplained Change in Mental Status Sepsis Action Taken by [facility] Medications Current Medication List: was personally reviewed by me Laboratory Data Attestation: I reviewed the patient's lab results. 07/03/23 19:35 07/03/23 19:35 Lab Results 07/03/23 07/03/23 07/03/23 Range/Units 19:13 19:13 19:35 WBC 8.94 (4.8-10.8) K/ul RBC 4.44 (4.20-5.40) M/uL Hgb 14.0 (12.0-16.0) g/dl Hct 40.6 (37.0-47.0) % MCV 91.4 (80.0-100.0) fL MCH 31.5 (25.0-34.0) pg MCHC 34.5 (32.0-36.0) g/dL RDW Std Deviation 41.1 (36.4-46.3) fL RDW Coeff of Anne Marie 12.1 (11.5-14.5) % Plt Count 294 (130-400) K/uL MPV 9.7 (9.4-12.4) fL Immature Gran % (Auto) 0.2 % Neut % (Auto) 62.8 % Lymph % (Auto) 28.0 % [place] % (Auto) 3.7 % Eos % (Auto) 4.9 % Baso % (Auto) 0.4 % Neut # (Auto) 5.61 (1.40-6.50) K/uL Lymph # (Auto) 2.50 (1.20-3.40) K/uL [place] # (Auto) 0.33 (0.11-0.59) K/uL Eos # (Auto) 0.44 (0.00-0.50) K/uL Baso # (Auto) 0.04 (0.00-0.20) K/uL Immature Gran # (Auto) 0.02 (0.01-0.20) K/uL Sodium (136-145) mmol/L Potassium (3.5-5.1) mmol/L Chloride (98-107) mmol/L Carbon Dioxide (21-32) mmol/L Anion Gap (3-11) BUN (6-23) mg/dl Creatinine (0.6-1.2) mg/dl Est Cr Clr Drug Dosing ml/min Est GFR ( Amer) ml/min Est GFR (Non-Af Amer) ml/min BUN/Creatinine Ratio (10-20) Glucose (70-99(Fasting)) mg/dl Calcium (8.6-10.3) mg/dl Magnesium (1.7-2.4) mg/dl Total Bilirubin (0.2-1.0) mg/dl AST (13-39) U/L ALT (7-52) U/L Alkaline Phosphatase (34-104) U/L Total Protein (6.0-8.3) gm/dl Albumin (3.4-5.0) gm/dl Globulin (2.5-4.0) gm/dl Albumin/Globulin Ratio (0.9-2) TSH (0.300-4.500) uIu/ml Free T4 (0.61-1.60) ng/dl Urine Color Dark Yellow Urine Appearance Clear (Clear) Urine pH 6.5 (4.5-7.5) Ur Specific [place] 1.037 H (1.000-1.030) Urine Protein 1+ H (Negative) Urine Glucose (UA) Negative (Negative) Urine Ketones 1+ H (Negative) Urine Blood Negative (Negative) Urine Nitrite Negative (Negative) Urine Bilirubin Negative (Negative) Urine Urobilinogen Negative (Negative) Ur Leukocyte Esterase Negative (Negative) Urine WBC (Auto) 1-5 (0-5) /hpf Urine RBC (Auto) 0-4 (0-4) /hpf U Hyaline Cast (Auto) 1-5 (0-5) /lpf U Epithel Cells (Auto) >30 H (0-5) /lpf Urine Bacteria (Auto) Negative (Negative) Salicylates (3.0-30) mg/dl Urine Opiates Screen Neg (Neg) Ur Methadone, Qual Neg (Neg) Acetaminophen (10-30) ug/ml Urine Barbiturates Neg (Neg) Ur Phencyclidine (PCP) Neg (Neg) U Amphetamin/Meth Scrn Neg (Neg) MDMA (Ecstasy) Screen Pos H (Neg) U Benzodiazepines Scrn Pos H (Neg) Ur Cocaine Metabolite Neg (Neg) U Marijuana (THC) Screen Neg (Neg) Ethyl Alcohol mg/dL (<10.0) mg/dl 07/03/23 07/03/23 07/03/23 Range/Units 19:35 19:35 19:35 WBC (4.8-10.8) K/ul RBC (4.20-5.40) M/uL Hgb (12.0-16.0) g/dl Hct (37.0-47.0) % MCV (80.0-100.0) fL MCH (25.0-34.0) pg MCHC (32.0-36.0) g/dL RDW Std Deviation (36.4-46.3) fL RDW Coeff of Anne Marie (11.5-14.5) % Plt Count (130-400) K/uL MPV (9.4-12.4) fL Immature Gran % (Auto) % Neut % (Auto) % Lymph % (Auto) % [place] % (Auto) % Eos % (Auto) % Baso % (Auto) % Neut # (Auto) (1.40-6.50) K/uL Lymph # (Auto) (1.20-3.40) K/uL [place] # (Auto) (0.11-0.59) K/uL Eos # (Auto) (0.00-0.50) K/uL Baso # (Auto) (0.00-0.20) K/uL Immature Gran # (Auto) (0.01-0.20) K/uL Sodium 139 (136-145) mmol/L Potassium 3.2 L (3.5-5.1) mmol/L Chloride 104 (98-107) mmol/L Carbon Dioxide 26 (21-32) mmol/L Anion Gap 9 (3-11) BUN 10 (6-23) mg/dl Creatinine 0.74 (0.6-1.2) mg/dl Est Cr Clr Drug Dosing 87.7 ml/min Est GFR ( Amer) 131.4 ml/min Est GFR (Non-Af Amer) 113.4 ml/min BUN/Creatinine Ratio 13.5 (10-20) Glucose 87 (70-99(Fasting)) mg/dl Calcium 9.2 (8.6-10.3) mg/dl Magnesium (1.7-2.4) mg/dl Total Bilirubin 1.3 H (0.2-1.0) mg/dl AST 16 (13-39) U/L ALT 13 (7-52) U/L Alkaline Phosphatase 50 (34-104) U/L Total Protein 7.7 (6.0-8.3) gm/dl Albumin 4.9 (3.4-5.0) gm/dl Globulin 2.8 (2.5-4.0) gm/dl Albumin/Globulin Ratio 1.8 (0.9-2) TSH 4.663 H (0.300-4.500) uIu/ml Free T4 1.06 (0.61-1.60) ng/dl Urine Color Urine Appearance (Clear) Urine pH (4.5-7.5) Ur Specific [place] (1.000-1.030) Urine Protein (Negative) Urine Glucose (UA) (Negative) Urine Ketones (Negative) Urine Blood (Negative) Urine Nitrite (Negative) Urine Bilirubin (Negative) Urine Urobilinogen (Negative) Ur Leukocyte Esterase (Negative) Urine WBC (Auto) (0-5) /hpf Urine RBC (Auto) (0-4) /hpf U Hyaline Cast (Auto) (0-5) /lpf U Epithel Cells (Auto) (0-5) /lpf Urine Bacteria (Auto) (Negative) Salicylates < 3.0 L (3.0-30) mg/dl Urine Opiates Screen (Neg) Ur Methadone, Qual (Neg) Acetaminophen < 3 L (10-30) ug/ml Urine Barbiturates (Neg) Ur Phencyclidine (PCP) (Neg) U Amphetamin/Meth Scrn (Neg) MDMA (Ecstasy) Screen (Neg) U Benzodiazepines Scrn (Neg) Ur Cocaine Metabolite (Neg) U Marijuana (THC) Screen (Neg) Ethyl Alcohol mg/dL (<10.0) mg/dl 07/03/23 07/03/23 Range/Units 19:35 19:35 WBC (4.8-10.8) K/ul RBC (4.20-5.40) M/uL Hgb (12.0-16.0) g/dl Hct (37.0-47.0) % MCV (80.0-100.0) fL MCH (25.0-34.0) pg MCHC (32.0-36.0) g/dL RDW Std Deviation (36.4-46.3) fL RDW Coeff of Anne Marie (11.5-14.5) % Plt Count (130-400) K/uL MPV (9.4-12.4) fL Immature Gran % (Auto) % Neut % (Auto) % Lymph % (Auto) % [place] % (Auto) % Eos % (Auto) % Baso % (Auto) % Neut # (Auto) (1.40-6.50) K/uL Lymph # (Auto) (1.20-3.40) K/uL [place] # (Auto) (0.11-0.59) K/uL Eos # (Auto) (0.00-0.50) K/uL Baso # (Auto) (0.00-0.20) K/uL Immature Gran # (Auto) (0.01-0.20) K/uL Sodium (136-145) mmol/L Potassium (3.5-5.1) mmol/L Chloride (98-107) mmol/L Carbon Dioxide (21-32) mmol/L Anion Gap (3-11) BUN (6-23) mg/dl Creatinine (0.6-1.2) mg/dl Est Cr Clr Drug Dosing ml/min Est GFR ( Amer) ml/min Est GFR (Non-Af Amer) ml/min BUN/Creatinine Ratio (10-20) Glucose (70-99(Fasting)) mg/dl Calcium (8.6-10.3) mg/dl Magnesium 1.9 (1.7-2.4) mg/dl Total Bilirubin (0.2-1.0) mg/dl AST (13-39) U/L ALT (7-52) U/L Alkaline Phosphatase (34-104) U/L Total Protein (6.0-8.3) gm/dl Albumin (3.4-5.0) gm/dl Globulin (2.5-4.0) gm/dl Albumin/Globulin Ratio (0.9-2) TSH (0.300-4.500) uIu/ml Free T4 (0.61-1.60) ng/dl Urine Color Urine Appearance (Clear) Urine pH (4.5-7.5) Ur Specific [place] (1.000-1.030) Urine Protein (Negative) Urine Glucose (UA) (Negative) Urine Ketones (Negative) Urine Blood (Negative) Urine Nitrite (Negative) Urine Bilirubin (Negative) Urine Urobilinogen (Negative) Ur Leukocyte Esterase (Negative) Urine WBC (Auto) (0-5) /hpf Urine RBC (Auto) (0-4) /hpf U Hyaline Cast (Auto) (0-5) /lpf U Epithel Cells (Auto) (0-5) /lpf Urine Bacteria (Auto) (Negative) Salicylates (3.0-30) mg/dl Urine Opiates Screen (Neg) Ur Methadone, Qual (Neg) Acetaminophen (10-30) ug/ml Urine Barbiturates (Neg) Ur Phencyclidine (PCP) (Neg) U Amphetamin/Meth Scrn (Neg) MDMA (Ecstasy) Screen (Neg) U Benzodiazepines Scrn (Neg) Ur Cocaine Metabolite (Neg) U Marijuana (THC) Screen (Neg) Ethyl Alcohol mg/dL < 10.0 (<10.0) mg/dl Administered Medications Discontinued Medications Magnesium Sulfate/Dextrose (Magnesium Sulfate / D5w) 1 gm in 100 mls @ 200 mls/hr IV Q30M DAVID Stop: 07/03/23 20:40 Last Infusion: 07/03/23 20:59 Dose: 0 mls/hr Documented By: Admin: 07/03/23 20:29 Dose: 200 mls/hr Documented By: Infusion: 07/03/23 20:29 Dose: 200 mls/hr Documented By: Admin: 07/03/23 20:02 Dose: 200 mls/hr Documented By: [email or web address] Magnesium Sulfate/Dextrose (Magnesium Sulfate / D5w) 1 gm in 100 mls @ 200 mls/hr IV NOW STA Stop: 07/03/23 21:41 Last Infusion: 07/03/23 21:56 Dose: 0 mls/hr Documented By: Admin: 07/03/23 21:25 Dose: 200 mls/hr Documented By: SUKHWINDER Potassium Chloride (Potassium Chloride Crtab 20 Meq Tabcr) 40 meq PO NOW STA Stop: 07/03/23 22:15 Last Admin: 07/03/23 22:26 Dose: 40 meq Documented By: [email or web address] Discharge Plan Visit Data Chief Complaint: Overdose (Intentional) Stated Complaint: TOOK 20 PILLS, ED Provider: Larry Gonzalez Discharge Problem: Intentional overdose, Suicidal ideation, Anxiety, QT prolongation Patient Disposition: Admitted As Inpatient Discharge Instructions Interventions: ED Discharge Assessment Last Done: 07/03/23 21:54
[2023-07-03 19:29] LABS: Appearance Urine Clear (Clear); Bacteria Urine Automated Negative (Negative); Bilirubin Urine Negative (Negative); Blood Urine Negative (Negative); Color Urine Dark Yellow; Epithelial Cell Urine Auto >30 /lpf (0-5); Glucose Urine UA Negative (Negative); Ketones Urine 1+ (Negative); Leukocyte Esterase Urine Negative (Negative); Nitrite Urine Negative (Negative); Protein Urine 1+ (Negative); RBC Urine Automated 0-4 /hpf (0-4); Specific Gravity Urine 1.037 (1.000-1.030); Urobilinogen Urine Negative (Negative); pH Urine 6.5 (4.5-7.5)
[2023-07-03] MEDS: MAGNESIUM SULFATE / D5W 1 GM/100 ML BAG IV SCH ×2 (20:02→20:29)
[2023-07-03 20:05] LABS: Basophils # (auto) 0.04 K/uL (0.00-0.20); Basophils % (auto) 0.4 %; Eosinophils # (auto) 0.44 K/uL (0.00-0.50); Eosinophils % (auto) 4.9 %; Hematocrit (blood only) 40.6 % (37.0-47.0); Immature Granulocytes # (auto) 0.02 K/uL (0.01-0.20); Immature Granulocytes % (auto) 0.2 %; Mean Corpuscular Hemoglobin 31.5 pg (25.0-34.0); Mean Corpuscular Hgb Conc 34.5 g/dL (32.0-36.0); Mean Corpuscular Volume 91.4 fL (80.0-100.0); Mean Platelet Volume 9.7 fL (9.4-12.4); Monocytes # (auto) 0.33 K/uL (0.11-0.59); Monocytes % (auto) 3.7 %; Neutrophils # (auto) 5.61 K/uL (1.40-6.50); Neutrophils % (auto) 62.8 %; Platelet Count 294 K/uL (130-400); RDW Coefficient of Variation 12.1 % (11.5-14.5); RDW Standard Deviation 41.1 fL (36.4-46.3); Red Blood Count 4.44 M/uL (4.20-5.40); White Blood Count 8.94 K/ul (4.8-10.8)
[2023-07-03 20:17] LABS: Albumin Level 4.9 gm/dl (3.4-5.0); Bilirubin,Total 1.3 mg/dl (0.2-1.0); Calcium 9.2 mg/dl (8.6-10.3); Potassium 3.2 mmol/L (3.5-5.1)
[2023-07-03 20:23] LABS: Albumin Globulin Ratio 1.8 (0.9-2); BUN Creatinine Ratio 13.5 (10-20); Creatinine Clr Calc Pharmacy 87.7 ml/min; Est GFR (African American) 131.4 ml/min; Est GFR (Non-African American) 113.4 ml/min; Globulin 2.8 gm/dl (2.5-4.0); Total Protein 7.7 gm/dl (6.0-8.3)
[2023-07-03 20:25] LABS: Amphetamines+Metham, Urine Neg (Neg); Barbiturates, Urine Neg (Neg); Benzodiazepine, Urine Pos (Neg); Cocaine, Urine Neg (Neg); MDMA (Ecstacy), Urine Pos (Neg); Methadone, Urine Neg (Neg); Opiate, Urine Neg (Neg); Phencyclidine, Urine Neg (Neg)
[2023-07-03 20:27] LABS: Acetaminophen < 3 ug/ml (10-30); Salicylate < 3.0 mg/dl (3.0-30)
[2023-07-03 20:29] LABS: Thyroid Stimulating Hormone 4.663 uIu/ml (0.300-4.500)
[2023-07-03] MEDS ORDERED: MAGNESIUM SULFATE / D5W 1 GM/100 ML BAG IV STA (21:12)
--- NOTE | 2023-07-03 21:14 | History & Physical Report ---
Date of Service July 03, 2023 Assessment & Plan (1) Intentional overdose: Plan: 23yo female with history of anxiety and depression presenting with intentional overdose taking 800-900mg of Trazodone this evening around 18:00. Patient with frequent suicidal ideation, no prior attempts. Fells that this current ingestion was "just a moment of weakness". She denies HI, AH, VH. No manic symptoms. Verbally contracted for safety while in the hospital. Initial EKG with prolonged QTc of 499 Discussion with poison control center - Mg should be administered for Prolonged QTc, HCO3 for prolonged QRs Patient requires a 12 hour medical observation for potential complications of overdose -Admit to medical with telemetry -Maintain suicide precautions -1:1 sitter for tonight -Hold trazodone and home medications -Repeat EKG at 12:00 and again in AM -Psychiatry consultation appreciated (2) Major depression, recurrent: Plan: Will hold home medications for now Psychiatry consultation appreciated (3) Anxiety: Plan: Will hold home medications for now Psychiatry consultation appreciated F/E/N - Heplock. Mg x 3gm given for QTc, KCl 40mEq PO ordered for K of 3.2. Repeat chemistry in AM, Regular diet as tolerated Ppx - Low risk for DVT Code - Full Dispo - Admit to medical with telemetry History of Present Illness Chief Complaint: Intentional overdose Primary Care Provider: NO PCP Yesy Watters is a 23yo female with history of anxiety/depression presenting with intentional overdose. Patient reports some increased school-related stress. 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 She has been back in the [place] area for the last 2 weeks. She reports "getting stuck in her own head" a lot. Around 18:00 she took 16-18 50mg ER Trazodone tablets (total ingestion of 800 - 900mg of Trazodone). Denies EtOH intake or other co-ingestants. She does not think that the ingestion was a true suicide attempt rather "just a moment of weakness". She does have fairly frequent suicidal thoughts. No real past attempts - is notation of a suicidal gesture with pills in the past. Patient with no particular complaints at this time. She denies fever, chills, cough, SOB, Chest pain, nausea, vomiting, diarrhea. In the ER she is afebrile, HD stable, NAD. Patient was diagnosed with depression and anxiety approximately 5 years ago. She has been on Trazodone and Sertraline for the lat 4-5 years. She was started on Buspar approximately 1 year ago and Wellbutrin approximately 8 months ago. She has not been on any other medications for her depression/anxiety. She was admitted to our inpatient Psychiatric service in July 2022 in the setting of worsening SI in the setting of increased stress. She reports compliance with her medications. ER Course: Magnesium x 3gm Allergies Allergy/AdvReac Type Severity Reaction Status Date / Time No Known Allergies Allergy Unverified 07/22/22 18:48 Home Medications Medication Instructions Recorded Confirmed Type trazodone 50 mg tablet 50 mg PO HS #1 tab 07/26/22 07/03/23 Rx bupropion HCl 100 mg tablet,12 hr 100 mg PO QAM 07/03/23 07/03/23 History sustained-release buspirone 10 mg tablet 10 mg PO BID 07/03/23 07/03/23 History sertraline 100 mg tablet 200 mg PO DAILY 07/03/23 07/03/23 History Past Med/Surg History Medical History (Updated 07/03/23 @ 21:35 by Mandi Mota DO) Anxiety Major depression, recurrent Surgical History No pertinent past surgical history Family History (Updated 07/03/23 @ 21:33 by Mandi Mota DO) Other Family history non-contributory Social History (Updated 07/03/23 @ 21:33 by Mandi Mota DO) Smoking Status: Never smoker Hx Alcohol Use: Yes (social use) Hx Substance Use: No Preferred Language: Icelandic Communication Ability: Effective Director Of Solutions Architecture Required: No Beliefs That Will Affect Care: None Feels Safe at Home: Yes Assistive Devices: None Review of Systems Review of Systems: All systems reviewed & are unremarkable except as noted in HPI & below Physical Exam Physical Exam: General: patient resting comfortably, NAD, non-toxic in appearance, AA&O x 4 Skin: warm, dry, intact, no rashes or lesions HEENT: NC/AT, PERRL, EOMI, anicteric sclera, conjunctiva without injection, external ear normal to inspection and nontender, nares patent, moist mucus membranes, dentition intact, no oropharyngeal lesions, neck supple, trachea midline, no LAD, no thyromegaly, no JVD Heart: +S1/S2, regular, no m/r/g Lungs: equal air entry bilaterally, no rales/rhonchi/wheezes Abd: +BS, soft, NT/ND, no masses/organomegaly/ascites Ext: warm, 2+ pulses in UE/LE bilaterally, no clubbing/cyanosis or edema Neuro: nonfocal, patient AA&O x 4, speech intact, no facial droop, moving all extremities on command with equal strength 5/5 Results & Data Results & Data Vital Signs (Past 12 Hours) Vital Signs Temp Pulse Pulse Resp BP BP Pulse Ox 07/03/23 21:00 83 22 114/64 96 07/03/23 20:30 70 17 99/61 L 96 07/03/23 20:00 80 20 113/68 97 07/03/23 19:51 72 13 99 07/03/23 19:12 71 17 115/76 99 07/03/23 19:12 76 17 99 07/03/23 19:00 36.6 C 101 H 18 128/87 98 O2 Del Method 07/03/23 21:00 Room Air 07/03/23 20:30 Room Air 07/03/23 20:00 Room Air 07/03/23 19:51 Room Air 07/03/23 19:12 Room Air 07/03/23 19:12 Room Air 07/03/23 19:00 Room Air Laboratory Results Laboratory Results WBC 8.94 K/ul (4.8-10.8) 07/03/23 19:35 RBC 4.44 M/uL (4.20-5.40) 07/03/23 19:35 Hgb 14.0 g/dl (12.0-16.0) 07/03/23 19:35 Hct 40.6 % (37.0-47.0) 07/03/23 19:35 MCV 91.4 fL (80.0-100.0) 07/03/23 19:35 MCH 31.5 pg (25.0-34.0) 07/03/23 19:35 MCHC 34.5 g/dL (32.0-36.0) 07/03/23 19:35 RDW Std Deviation 41.1 fL (36.4-46.3) 07/03/23 19:35 RDW Coeff of Anne Marie 12.1 % (11.5-14.5) 07/03/23 19:35 Plt Count 294 K/uL (130-400) 07/03/23 19:35 MPV 9.7 fL (9.4-12.4) 07/03/23 19:35 Immature Gran % (Auto) 0.2 % 07/03/23 19:35 Neut % (Auto) 62.8 % 07/03/23 19:35 Lymph % (Auto) 28.0 % 07/03/23 19:35 [place] % (Auto) 3.7 % 07/03/23 19:35 Eos % (Auto) 4.9 % 07/03/23 19:35 Baso % (Auto) 0.4 % 07/03/23 19:35 Neut # (Auto) 5.61 K/uL (1.40-6.50) 07/03/23 19:35 Lymph # (Auto) 2.50 K/uL (1.20-3.40) 07/03/23 19:35 [place] # (Auto) 0.33 K/uL (0.11-0.59) 07/03/23 19:35 Eos # (Auto) 0.44 K/uL (0.00-0.50) 07/03/23 19:35 Baso # (Auto) 0.04 K/uL (0.00-0.20) 07/03/23 19:35 Immature Gran # (Auto) 0.02 K/uL (0.01-0.20) 07/03/23 19:35 Sodium 139 mmol/L (136-145) 07/03/23 19:35 Potassium 3.2 mmol/L (3.5-5.1) L 07/03/23 19:35 Chloride 104 mmol/L (98-107) 07/03/23 19:35 Carbon Dioxide 26 mmol/L (21-32) 07/03/23 19:35 Anion Gap 9 (3-11) 07/03/23 19:35 BUN 10 mg/dl (6-23) 07/03/23 19:35 Creatinine 0.74 mg/dl (0.6-1.2) 07/03/23 19:35 Est Cr Clr Drug Dosing 87.7 ml/min 07/03/23 19:35 Est GFR ( Amer) 131.4 ml/min 07/03/23 19:35 Est GFR (Non-Af Amer) 113.4 ml/min 07/03/23 19:35 BUN/Creatinine Ratio 13.5 (10-20) 07/03/23 19:35 Glucose 87 mg/dl (70-99(Fasting)) 07/03/23 19:35 Calcium 9.2 mg/dl (8.6-10.3) 07/03/23 19:35 Total Bilirubin 1.3 mg/dl (0.2-1.0) H 07/03/23 19:35 AST 16 U/L (13-39) 07/03/23 19:35 ALT 13 U/L (7-52) 07/03/23 19:35 Alkaline Phosphatase 50 U/L (34-104) 07/03/23 19:35 Total Protein 7.7 gm/dl (6.0-8.3) 07/03/23 19:35 Albumin 4.9 gm/dl (3.4-5.0) 07/03/23 19:35 Globulin 2.8 gm/dl (2.5-4.0) 07/03/23 19:35 Albumin/Globulin Ratio 1.8 (0.9-2) 07/03/23 19:35 TSH 4.663 uIu/ml (0.300-4.500) H 07/03/23 19:35 Urine Color Dark Yellow 07/03/23 19:13 Urine Appearance Clear (Clear) 07/03/23 19:13 Urine pH 6.5 (4.5-7.5) 07/03/23 19:13 Ur Specific [place] 1.037 (1.000-1.030) H 07/03/23 19:13 Urine Protein 1+ (Negative) H 07/03/23 19:13 Urine Glucose (UA) Negative (Negative) 07/03/23 19:13 Urine Ketones 1+ (Negative) H 07/03/23 19:13 Urine Blood Negative (Negative) 07/03/23 19:13 Urine Nitrite Negative (Negative) 07/03/23 19:13 Urine Bilirubin Negative (Negative) 07/03/23 19:13 Urine Urobilinogen Negative (Negative) 07/03/23 19:13 Ur Leukocyte Esterase Negative (Negative) 07/03/23 19:13 Urine WBC (Auto) 1-5 /hpf (0-5) 07/03/23 19:13 Urine RBC (Auto) 0-4 /hpf (0-4) 07/03/23 19:13 U Hyaline Cast (Auto) 1-5 /lpf (0-5) 07/03/23 19:13 U Epithel Cells (Auto) >30 /lpf (0-5) H 07/03/23 19:13 Urine Bacteria (Auto) Negative (Negative) 07/03/23 19:13 Salicylates < 3.0 mg/dl (3.0-30) L 07/03/23 19:35 Urine Opiates Screen Neg (Neg) 07/03/23 19:13 Ur Methadone, Qual Neg (Neg) 07/03/23 19:13 Acetaminophen < 3 ug/ml (10-30) L 07/03/23 19:35 Urine Barbiturates Neg (Neg) 07/03/23 19:13 Ur Phencyclidine (PCP) Neg (Neg) 07/03/23 19:13 U Amphetamin/Meth Scrn Neg (Neg) 07/03/23 19:13 MDMA (Ecstasy) Screen Pos (Neg) H 07/03/23 19:13 U Benzodiazepines Scrn Pos (Neg) H 07/03/23 19:13 Ur Cocaine Metabolite Neg (Neg) 07/03/23 19:13 U Marijuana (THC) Screen Neg (Neg) 07/03/23 19:13 Ethyl Alcohol mg/dL < 10.0 mg/dl (<10.0) 07/03/23 19:35 ECG Additional Comments: EKG at 19:28 - NSR at 76, normal axis, TV=741, QRS=88, MFi=822 PG Care Time/CCT Total # of Minutes Spent Total Time Spent with Patient: Total time spent is greater than 50% in coordination of care (as documented) at patient's floor/unit and/or counseling patient: Coding Level of Care Code 11971 INT INP/OBS CARE 2/55MIN Diagnoses Intentional overdose T50.902A Major depression, recurrent F33.9 Anxiety F41.9
[2023-07-03] MEDS ORDERED: ONDANSETRON INJ 2 MG/ML 2 ML VIAL IV PRN (22:14)
[2023-07-03] MEDS ORDERED: POTASSIUM CHLORIDE CRTAB 20 MEQ TABCR PO STA (22:14)
[2023-07-03] MEDS ORDERED: ACETAMINOPHEN 325 MG TAB PO PRN (22:14)
[2023-07-03 22:38] VITALS: TEMP 97.7
[2023-07-03 22:55] LABS: T4 Free Thyroxine 1.06 ng/dl (0.61-1.60)
[2023-07-04 05:09] VITALS: O2SAT 96
[2023-07-04 07:37] LABS: Hematocrit (blood only) 38.2 % (37.0-47.0); Hemoglobin 13.2 g/dl (12.0-16.0); Mean Corpuscular Hemoglobin 31.1 pg (25.0-34.0); Mean Corpuscular Hgb Conc 34.6 g/dL (32.0-36.0); Mean Corpuscular Volume 90.1 fL (80.0-100.0); Mean Platelet Volume 9.6 fL (9.4-12.4); Platelet Count 301 K/uL (130-400); RDW Coefficient of Variation 12.5 % (11.5-14.5); RDW Standard Deviation 41.6 fL (36.4-46.3); Red Blood Count 4.24 M/uL (4.20-5.40); White Blood Count 7.33 K/ul (4.8-10.8)
[2023-07-04 08:05] LABS: Albumin Level 4.4 gm/dl (3.4-5.0); Bilirubin Direct 0.2 mg/dl (0-0.2); Bilirubin,Total 1.5 mg/dl (0.2-1.0); Calcium 9.2 mg/dl (8.6-10.3); Creatinine Clr Calc Pharmacy 88.9 ml/min; Est GFR (African American) 133.6 ml/min; Est GFR (Non-African American) 115.3 ml/min; Potassium 4.2 mmol/L (3.5-5.1); Total Protein 6.9 gm/dl (6.0-8.3)
[2023-07-04 08:33] VITALS: BP 106/69
--- NOTE | 2023-07-04 12:24 | Psychiatric Consultation ---
Date of Consultation July 04, 2023 Impression / Recommendations Impression 23 yo woman admitted medically following an intentional overdose suicide attempt. 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 Acute risk of self-harm remains elevated and high given intentional overdose requiring medical admission, depressive symptoms, impulsivity, limited insight. Given elevated risk of harm to self they meet criteria for inpatient psychiatric care for diagnostic clarification, safety/stabilization, development of additional coping skills, medication management and disposition/safety planning once medically stable. Overall, I spent a total of 60 minutes with this case including review of chart records, review of labwork, review of EKG QTc, direct evaluation of the patient at bedside, counseling the patient, discussion of the patient with the Nurse and with the hospitalist provider, discussion with the psychiatric liason during clinical rounds, decision making about need for inpatient psychiatric hospitalization and documentation in the electronic health record. (1) Intentional overdose: Encounter type: initial encounter Qualified Code(s): T50.902A - Poisoning by unspecified drugs, medicaments and biological substances, intentional self-harm, initial encounter (2) Depression, unspecified: Plan -Plan for inpatient psychiatry admission later this afternoon when bed is available -Will need COVID-19 test to be negative for admission to in psych -Continue 1-on-1 for risk of harm to self until admitted to inpatient psychiatry -Do not discharge or allow to leave AMA, would meet 302 criteria -Hold trazodone given overdose, will restart sertraline, buspar and Wellbutrin starting tomorrow given improvement of QTc -Recheck QTc tomorrow to ensure ongoing trend toward improvement Psych History Identifying Data 23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 Psychiatry consulted for risk assessment Chief Complaint "Some days are really hard, it was impulsive". History of Present Illness Yesy was admitted following intentional overdose of 16-20 tablets of her trazodone which she reports was "impulsive" and not necessarily done with the intent to but also due to not wanting to be alive. She is glad to have survived the attempt and currently denies wanting to but notes that "some days are really hard" and that her mood has been worse since returning to [employer] for her law semester. 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 Allergies Allergy/AdvReac Type Severity Reaction Status Date / Time No Known Allergies Allergy Unverified 07/22/22 18:48 Home Medications Medication Instructions Recorded Confirmed Type bupropion HCl 100 mg tablet,12 hr 100 mg PO QAM 07/03/23 07/03/23 History sustained-release buspirone 10 mg tablet 10 mg PO BID 07/03/23 07/03/23 History sertraline 100 mg tablet 200 mg PO DAILY 07/03/23 07/03/23 History Patient History Medical History Anxiety Major depression, recurrent Surgical History No pertinent past surgical history Family History Other Family history non-contributory Social History Smoking Status: Never smoker Hx Alcohol Use: Yes Hx Substance Use: No Preferred Language: South African Communication Ability: Effective .Net Architect Required: No Beliefs That Will Affect Care: None Current Living Situation: Other Current Living Situation Comment: college student Feels Safe at Home: Yes Assistive Devices: None Physical Exam Psychiatric: Orientation: alert and oriented x 3 Apperance: appropriately dressed and appropriately groomed Eye Contact: good eye contact Motor Behavior: no abnormal motor movements Speech: normal rate/rhythm/volume of speech Affect: + depressed affect Mood: + depressed mood Thought Process: goal directed thought process Thought Content: reality based without delusions Suicidal Thoughts: denies suicidal thoughts (but s/p overdose attempt) Homicidal Thoughts: denies homicidal thoughts Hallucinations: no auditory hallucinations and no visual hallucinations Cognition: attention grossly intact and language grossly intact Estimated Intelligence: consistent with education level Insight: + limited insight Judgment: + limited judgement Vital Signs (Past 24 Hours): Last Vital Signs Temp 36.5 C 07/04/23 08:33 Pulse 61 07/04/23 08:52 Resp 16 07/04/23 08:33 BP 106/69 07/04/23 08:33 Pulse Ox 96 07/04/23 08:33 O2 Del Method Room Air 07/04/23 08:33 Review of Systems All systems reviewed & are unremarkable except as noted in HPI & below Results & Data (PSY) Laboratory Results Na+ normal Diagnostic Findings QTc 473ms on EKG this morning Coding Level of Care Code 08433 IN/OBS CONSULT LVL 4,60M Diagnoses Intentional overdose T50.902A Encounter type: initial encounter Depression, unspecified F32.A Time Spent (min) 60
--- NOTE | 2023-07-04 14:36 | Discharge Summary ---
Date of Service July 04, 2023 Admission HPI Per Admitting Provider Yesy Watters is a 23yo female with history of anxiety/depression presenting with intentional overdose. Patient reports some increased school-related stress. 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 She has been back in the [place] area for the last 2 weeks. She reports "getting stuck in her own head" a lot. Around 18:00 she took 16-18 50mg ER Trazodone tablets (total ingestion of 800 - 900mg of Trazodone). Denies EtOH intake or other co-ingestants. She does not think that the ingestion was a true suicide attempt rather "just a moment of weakness". She does have fairly frequent suicidal thoughts. No real past attempts - is notation of a suicidal gesture with pills in the past. Patient with no particular complaints at this time. She denies fever, chills, cough, SOB, Chest pain, nausea, vomiting, diarrhea. In the ER she is afebrile, HD stable, NAD. Patient was diagnosed with depression and anxiety approximately 5 years ago. She has been on Trazodone and Sertraline for the lat 4-5 years. She was started on Buspar approximately 1 year ago and Wellbutrin approximately 8 months ago. She has not been on any other medications for her depression/anxiety. She was admitted to our inpatient Psychiatric service in July 2022 in the setting of worsening SI in the setting of increased stress. She reports compliance with her medications. ER Course: Magnesium x 3gm Admission Exam Per Admitting Provider General: patient resting comfortably, NAD, non-toxic in appearance, AA&O x 4 Skin: warm, dry, intact, no rashes or lesions HEENT: NC/AT, PERRL, EOMI, anicteric sclera, conjunctiva without injection, external ear normal to inspection and nontender, nares patent, moist mucus membranes, dentition intact, no oropharyngeal lesions, neck supple, trachea midline, no LAD, no thyromegaly, no JVD Heart: +S1/S2, regular, no m/r/g Lungs: equal air entry bilaterally, no rales/rhonchi/wheezes Abd: +BS, soft, NT/ND, no masses/organomegaly/ascites Ext: warm, 2+ pulses in UE/LE bilaterally, no clubbing/cyanosis or edema Neuro: nonfocal, patient AA&O x 4, speech intact, no facial droop, moving all extremities on command with equal strength 5/5 Principal Diagnosis suicide attempt by intentional drug overdose Discharge Exam general: Awake, conversant Heart: S1, S2/regular rate and rhythm, no murmur rubs or gallops Lungs: Clear to auscultation bilaterally. Normal effort Abdomen: Soft/nontender/nondistended. No hepatosplenomegaly Extremities: No clubbing/cyanosis. No edema Behavior: Appropriate, cooperative Discharge Data Allergies Allergy/AdvReac Type Severity Reaction Status Date / Time No Known Allergies Allergy Unverified 07/22/22 18:48 Consultations 07/03/23 21:09 ED Decision to Admit Stat 07/03/23 22:14 Consult Psychiatry Routine Hospital Course (1) Intentional overdose: 23yo female with history of anxiety and depression presenting with intentional overdose taking 800-900mg of Trazodone this evening around 18:00. Patient with frequent suicidal ideation, no prior attempts. Fells that this current ingestion was "just a moment of weakness". She denies HI, AH, VH. No manic symptoms. Initial EKG with prolonged QTc of 499 Subsequent EKG with decreasing QTc Cleared medically for discharge -Maintain suicide precautions -1:1 sitter -Hold trazodone -Psychiatry consultation appreciated Patient will be transferred to inpatient psych unit Continue to hold trazodone upon discharge (2) Major depression, recurrent: resume home medications except for trazodone Psychiatry consultation appreciated (3) Anxiety: resume home medications except for trazodone full code Disposition: Discharge to inpatient psych unit Total Time Total Time Spent Total Time Spent (In Minutes): 35 Discharge Plan Discharge Items Patient Disposition: Transfer Behavioral Health Fac Reason For Visit: INTENTIONAL OVERDOSE Discharge Diagnosis: Suicide attempt with intentional drug overdose Activity: Resume your previous activity Non-emergency contact: Primary Care Provider Call non-emergency contact if: you have any medication questions and your symptoms worsen Follow-up/Referrals: PCP,NO [Primary Care Provider] - Diet: Regular Addtl Attending Provider Instructions: advised to follow-up with PCP in 1 week Pending Studies at Discharge: No Stand-Alone Forms: [facility] Medications and DC Order Prescriptions: Continued sertraline 100 mg tablet 200 mg PO QAM bupropion HCl 100 mg tablet sustained-release 12 hr 100 mg PO QAM buspirone 10 mg tablet 10 mg PO BID Discontinued trazodone 50 mg Tablet 50 mg PO HS trazodone 50 mg tablet 50 mg PO HS Qty: 1 0RF Discharge Orders: Discharge Order (Routine); Ordered 07/04/23 Ordered By: Keysha Ferreira Admission Data Admit Date/Time: 07/03/23 21:07 Attending Provider: Keysha Ferreira Admit Provider: Mandi Mota Primary Care Provider: PCP,NO Other Providers: Mandi Mota ; Willa Pineda ; Carmen Campbell ; Jann Maurer Coding Level of Care Code 48589 INP/OBS DISCH >30 MIN Diagnoses Intentional overdose T50.902A Encounter type: initial encounter Major depression, recurrent F33.9 Anxiety F41.9
--- NOTE | 2023-07-04 15:31 | Electrocardiogram Report ---
Test Reason : Blood Pressure : / mmHG Vent. Rate : 076 BPM Atrial Rate : 076 BPM P-R Int : 134 ms QRS Dur : 088 ms QT Int : 400 ms P-R-T Axes : 074 076 025 degrees QTc Int : 450 ms Normal sinus rhythm Normal ECG No previous ECGs available Confirmed by Vince Fernandez ([id number]) on 07/04/2023 3:30:54 PM Referred By: REFERRED SELF Confirmed By:Vince Fernandez
[2023-07-04 15:33] VITALS: PULSE 65
--- NOTE | 2023-07-04 15:50 | Electrocardiogram Report ---
Test Reason : Blood Pressure : / mmHG Vent. Rate : 073 BPM Atrial Rate : 073 BPM P-R Int : 148 ms QRS Dur : 090 ms QT Int : 400 ms P-R-T Axes : 070 082 022 degrees QTc Int : 441 ms Normal sinus rhythm Normal ECG When compared with ECG of 03-JUL-2023 19:28, (unconfirmed) No significant change was found Confirmed by Vince Fernandez ([id number]) on 07/04/2023 3:50:37 PM Referred By: REFERRED SELF Confirmed By:Vince Fernandez
--- NOTE | 2023-07-04 15:51 | Electrocardiogram Report ---
Test Reason : Blood Pressure : / mmHG Vent. Rate : 071 BPM Atrial Rate : 071 BPM P-R Int : 144 ms QRS Dur : 088 ms QT Int : 436 ms P-R-T Axes : 077 080 042 degrees QTc Int : 473 ms Normal sinus rhythm Normal ECG When compared with ECG of 03-JUL-2023 21:09, (unconfirmed) No significant change was found Confirmed by Vince Fernandez ([id number]) on 07/04/2023 3:51:34 PM Referred By: REFERRED SELF Confirmed By:Vince Fernandez
--- NOTE | 2023-07-04 16:28 | Electrocardiogram Report ---
Test Reason : Blood Pressure : / mmHG Vent. Rate : 063 BPM Atrial Rate : 063 BPM P-R Int : 140 ms QRS Dur : 094 ms QT Int : 428 ms P-R-T Axes : 079 080 049 degrees QTc Int : 437 ms Normal sinus rhythm Normal ECG When compared with ECG of 03-JUL-2023 23:13, (unconfirmed) No significant change was found Confirmed by Vince Fernandez ([id number]) on 07/04/2023 4:27:45 PM Referred By: REFERRED SELF Confirmed By:Vince Fernandez
== END 2023-07-04 17:10 | DRG 918 ==
LOC: ED 18:57 → 2W 21:07 → SUATTDRO 21:07 → 2W 21:54

== ENCOUNTER 2023-07-04 16:24 | Inpatient (IN) ==
[2023-07-04] MEDS ORDERED: MAGNESIUM HYDROXIDE SUSP 30 ML UDC PO PRN (16:28)
[2023-07-04] MEDS ORDERED: ALUMINUM/MAGNESIUM SUSP 30 ML UDC PO PRN (16:28)
[2023-07-04] MEDS ORDERED: hydrOXYzine HCl 25 MG TAB PO PRN ×2 (16:28)
[2023-07-04] MEDS ORDERED: BISMUTH SUBSALICYLATE LIQD 236 ML PO PRN (16:28)
[2023-07-04] MEDS ORDERED: ACETAMINOPHEN 325 MG TAB PO PRN (16:28)
[2023-07-04] MEDS ORDERED: SODIUM CHLORIDE 0.65% NA SOLN 45 ML (OCEAN) PRN (16:28)
[2023-07-05] MEDS ORDERED: SERTRALINE HCL 100 MG TABLET PO SCH (09:00)
[2023-07-05] MEDS: buPROPion SR 100 MG TABCR PO SCH (09:33)
[2023-07-05] MEDS: busPIRone 5 MG TAB PO SCH ×2 (09:33→22:00)
--- NOTE | 2023-07-05 11:07 | History & Physical ---
Date of Service July 05, 2023 Impression / Recommendations Impression 23 y/o F with long history of depressed mood and anxiety who reports substantial symptoms of obsessive thoughts and compulsive behaviors admitted following trazodone overdose that she says wasn't intended as suicidal. She has a history of partial response to sertraline, which has been well-tolerated. She is uncertain whether there's been any benefit from bupropion or buspirone. Bupropion is 12-hour slow-release formulation, which taken only once daily is very unlikely to help with depression, though it might with attention, focus, or energy. Buspirone taken only twice daily, especially at low 10 dose, is unlikely to be of much benefit. Partial response is reported to sertraline. Discussed my opinion that she appears to meet diagnostic criteria for OCD and that an SSRI such as sertraline would be an appropriate treatment, albeit usually at a higher dose (typically double) than is used for depression. Her current 200 mg daily sertraline dose is roughly at the adult average for depression, so she may need to consider aiming for 400 mg/day. She would like to increase the dose to 300 mg and to consider further titration on an outpatient basis. (1) Major depressive disorder, recurrent, severe without psychotic features: (2) Obsessive compulsive disorder: (3) TOYIN (generalized anxiety disorder): (4) Intentional overdose: Encounter type: initial encounter Qualified Code(s): T50.902A - Poisoning by unspecified drugs, medicaments and biological substances, intentional self-harm, initial encounter Plan The patient was admitted to the [facility] ([facility] mental [facility]) on q15 min checks (behavioral with suicide precautions) for safety. The patient will participate in group, recreational, and milieu therapies and will be offered additional individual and family sessions as clinically appropriate. 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 Needs: safety and stabilization, medication adjustment, additional coping skills Suicide Risk Level Suicide Risk Level: Moderate (q15 min suicide checks) Suicide Risk Level Comments: recent overdose, which she says was not intended to be suicidal but which caused cardiac conduction issues Risk Factors Assessment Do You Have Access To A Gun?: No Psychiatric History Identifying Data RAMONA LUO is a 23-year-old F who 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 Chief Complaint "I'm just having trouble fitting in here". 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 She reports having felt very isolated here despite being surrounded by many people and having friends. She impulsively took 15-18 50 mg trazodone in what she says was not an attempt at suicide, though she says she has "not felt like being here". She became concerned that this might be risk so came to the ED where QTc was prolonged and she was admitted to follow that prior to transfer to psychiatry. Pt reports a long Hx of depressed mood and anxiety for which she has been in treatment with limited success. She reports that from differential specialist she has not felt as if she fit in. She was consumed by perfectionism ("would freak out over an A-" despite parents' insisting that was still a great grade) and adherence to rigid schedules ("had to shower at exactly 7:46, be asleep by 8:10), and had to have every item in her room in a precise place even though the room didn't appear tidy. She spent much time arranging and ordering things such as books. In law school she's "been an OK student" but has had trouble with standardized tests because she must re-read questions 5 times and often re- thinks and changes answers. She spends much time ruminating "about things that don't matter". She has wondered if she has OCD but says this has not come up with any of her clinicians. She has struggled with sleep for several years and says trazodone has helped a lot. Denies episodes of typical manic symptoms such as racing thoughts, overspending, excessive activity, hypersexuality, decreased need for sleep. Denies wanting to be but is ambivalent about the degree to which she wants to be alive. When she was 14 her stepfather completed suicide (in mid-July) and she "wouldn't want to put something like that on anyone". She's "not really sure why" she took the trazodone. She's had suicidal thoughts in the paste but denies any previous overdose or other parasuicidal behavior. Past Psychiatric History Current Psychiatric Diagnosis: MDD Previous Psych Admissions: Here in July 2022 Do You Have Access To A Gun?: No History of Previous Suicide Attempt: No Past Medication Trials: sertraline since age 16 Allergies Allergy/AdvReac Type Severity Reaction Status Date / Time No Known Allergies Allergy Unverified 07/22/22 18:48 Home Medications Medication Instructions Recorded Confirmed Type bupropion HCl 100 mg tablet,12 hr 100 mg PO QAM 07/03/23 07/04/23 History sustained-release buspirone 10 mg tablet 10 mg PO BID 07/03/23 07/04/23 History sertraline 100 mg tablet 200 mg PO QAM 07/03/23 07/04/23 History trazodone 50 mg tablet 50 mg PO HS 07/04/23 07/04/23 History Family History Family History of: Depression, Anxiety and Suicide Completion Family Mental Health History Comment: thinks mom has anxiety Alcohol History Hx of Alcohol Use Over the Past 12 Months: Yes (wine, 2-3 glasses, 1-2 monthly, last weekend) AUDIT Total Score: 1 Smoking Use Have You Smoked or Used Tobacco Products in the Last 30 Days: No Smoking Status: Never smoker Substance History Hx of Prescription Med Misuse Over the Past 12 Months: No Hx of Over the Counter Med Misuse Over the Past 12 Months: No Hx of Inhalent Misuse Over the Past 12 Months: No Hx of Organic Substance Use Over the Past 12 Months: No Hx of Illegal Substances/Street Drug Use Over Past 12 Months: No Problems as a Result of Past Substance Use: None Identified Personal History Living Arrangements: Apartment Highest Grade Completed: Graduate School Highest Grade Completed Comment: kit in year 3 of law school Beliefs That Will Affect Care: None Hx Traumatic Life Events: Yes (loss of stepfather) Patient History Medical History (Updated 07/05/23 @ 18:05 by Jann Maurer MD) QT prolongation Suicidal ideation Surgical History No pertinent past surgical history Family History Other Family history non-contributory Social History Smoking Status: Never smoker Hx Alcohol Use: Yes Hx Substance Use: No Preferred Language: Macedonian Communication Ability: Effective Emergency Spill Response Technician Required: No Beliefs That Will Affect Care: None Current Living Situation: Other Current Living Situation Comment: college student Feels Safe at Home: Yes Gender Identity: Female Assistive Devices: Contacts Review of Systems Psychiatric: + depression, + anhedonia, + anxiety and + difficulty concentrating; no paranoia, no hallucinations and no substance abuse Physical Exam Psychiatric: Orientation: alert, oriented to person, oriented to place, oriented to time and cooperative Apperance: appropriately dressed, appropriately groomed and appeared stated age Eye Contact: good eye contact Motor Behavior: steady gait and station and no abnormal motor movements; no psychomotor agitation and no psychomotor retardation Speech: normal rate/rhythm/volume of speech Affect: + constricted affect Mood: + anxious mood and + dysphoric mood Thought Process: clear/coherent thought process Thought Content: + obsessions, + cognitive distortions and + loneliness Suicidal Thoughts: denies suicidal thoughts, denies suicidal plan and denies suicidal intent Homicidal Thoughts: denies homicidal thoughts Hallucinations: no auditory hallucinations and no visual hallucinations Cognition: recent memory grossly intact, remote memory grossly intact, attention grossly intact and language grossly intact Estimated Intelligence: + above average estimated intelligence Insight: + fair insight Judgment: + fair judgement Vital Signs (Past 24 Hours): Last Vital Signs Temp 36.8 C 07/05/23 06:49 Pulse 76 07/05/23 06:50 Resp 16 07/05/23 06:49 BP 103/67 07/05/23 06:50 Pulse Ox 97 07/04/23 17:59 O2 Del Method Room Air 07/04/23 17:59 Exam Statement: A physical exam was performed in the ED and by the admitting hospitalist for the purposes of medical clearance. I accept those physicals as correct and adequate for the purposes of the inpatient physical exam. Results & Data ([facility]) Current Inpatient Medications Current Inpatient Medications: Current Inpatient Medications Acetaminophen (Acetaminophen 325 Mg Tab) 650 mg PO Q4H PRN PRN Reason: Headache or Minor Fever Stop: 08/03/23 16:27 Al Hydrox/Mg Hydrox/Simethicone (Aluminum/Magnesium Susp 30 Ml Udc) 30 ml PO Q4H PRN PRN Reason: GI Upset Stop: 08/03/23 16:27 Bismuth Subsalicylate (Bismuth Subsalicylate Liqd 236 Ml) 15 ml PO PRN PRN PRN Reason: Loose Stool Stop: 08/03/23 16:27 Bupropion HCl (Bupropion Sr 100 Mg Tabcr) 100 mg PO QAM [facility] Stop: 08/04/23 08:59 Last Admin: 07/05/23 09:33 Dose: 100 mg Buspirone HCl (Buspirone 5 Mg Tab) 10 mg PO BID [facility] Stop: 08/04/23 08:59 Last Admin: 07/05/23 09:33 Dose: 10 mg Hydroxyzine HCl (Hydroxyzine Hcl 25 Mg Tab) 50 mg PO HSZ PRN PRN Reason: Insomnia Stop: 08/03/23 16:27 Hydroxyzine HCl (Hydroxyzine Hcl 25 Mg Tab) 25 mg PO Q4H PRN PRN Reason: Anxiety Stop: 08/03/23 16:27 Magnesium Hydroxide (Magnesium Hydroxide Susp 30 Ml Udc) 30 ml PO DAILY PRN PRN Reason: Constipation Stop: 08/03/23 16:27 Sertraline HCl (Sertraline Hcl 100 Mg Tablet) 200 mg PO QAM [facility] Stop: 08/04/23 08:59 Last Admin: 07/05/23 09:33 Dose: 200 mg Sodium Chloride (Sodium Chloride 0.65% Na Soln 45 Ml ([place])) 1 - 2 sprays NA PRN PRN PRN Reason: Nasal Dryness/Congestion Stop: 08/03/23 16:27
--- NOTE | 2023-07-05 17:34 | Electrocardiogram Report ---
Test Reason : Blood Pressure : / mmHG Vent. Rate : 080 BPM Atrial Rate : 080 BPM P-R Int : 128 ms QRS Dur : 090 ms QT Int : 378 ms P-R-T Axes : 106 098 146 degrees QTc Int : 435 ms Suspect arm lead reversal, interpretation assumes no reversal Normal sinus rhythm Rightward axis Borderline ECG When compared with ECG of 04-JUL-2023 05:03, T wave inversion now evident in Lateral leads Confirmed by Kaden Lauren ([id number]) on 07/05/2023 5:34:42 PM Referred By: Willa Pineda Confirmed By:Rjaesh Lauren
[2023-07-05] MEDS ORDERED: traZODone HCL 50 MG TAB PO PRN (18:02)
[2023-07-06] MEDS ORDERED: SERTRALINE HCL 100 MG TABLET PO SCH (09:00)
[2023-07-06] MEDS: busPIRone 5 MG TAB PO SCH (09:07)
[2023-07-06] MEDS: buPROPion SR 100 MG TABCR PO SCH (09:08)
--- NOTE | 2023-07-06 12:53 | Discharge Summary ---
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 She reports having felt very isolated here despite being surrounded by many people and having friends. She impulsively took 15-18 50 mg trazodone in what she says was not an attempt at suicide, though she says she has "not felt like being here". She became concerned that this might be risk so came to the ED where QTc was prolonged and she was admitted to follow that prior to transfer to psychiatry. Pt reports a long Hx of depressed mood and anxiety for which she has been in treatment with limited success. 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 She was consumed by perfectionism ("would freak out over an A-" despite parents' insisting that was still a great grade) and adherence to rigid schedules ("had to shower at exactly 7:46, be asleep by 8:10), and had to have every item in her room in a precise place even though the room didn't appear tidy. She spent much time arranging and ordering things such as books. In law school she's "been an OK student" but has had trouble with standardized tests because she must re-read questions 5 times and often re- thinks and changes answers. She spends much time ruminating "about things that don't matter". She has wondered if she has OCD but says this has not come up with any of her clinicians. She has struggled with sleep for several years and says trazodone has helped a lot. Denies episodes of typical manic symptoms such as racing thoughts, overspending, excessive activity, hypersexuality, decreased need for sleep. Denies wanting to be but is ambivalent about the degree to which she wants to be alive. When she was 14 her stepfather completed suicide (in mid-July) and she "wouldn't want to put something like that on anyone". She's "not really sure why" she took the trazodone. She's had suicidal thoughts in the paste but denies any previous overdose or other parasuicidal behavior. Physical Exam Psychiatric Orientation: alert, oriented to person, oriented to place, oriented to time and cooperative Apperance: appropriately dressed, appropriately groomed and appeared stated age Eye Contact: good eye contact Motor Behavior: steady gait and station and no abnormal motor movements; no psychomotor agitation and no psychomotor retardation Speech: normal rate/rhythm/volume of speech Affect: + constricted affect Mood: + anxious mood and + dysphoric mood Thought Process: clear/coherent thought process Thought Content: + obsessions, + cognitive distortions and + loneliness Suicidal Thoughts: denies suicidal thoughts, denies suicidal plan and denies suicidal intent Homicidal Thoughts: denies homicidal thoughts Hallucinations: no auditory hallucinations and no visual hallucinations Cognition: recent memory grossly intact, remote memory grossly intact, attention grossly intact and language grossly intact Estimated Intelligence: + above average estimated intelligence Insight: + fair insight Judgment: + fair judgement Vital Signs (Past 24 Hours) Last Vital Signs Temp 36.6 C 07/06/23 06:50 Pulse 75 07/06/23 06:50 Resp 16 07/06/23 06:50 BP 102/66 07/06/23 06:50 Pulse Ox 97 07/04/23 17:59 O2 Del Method Room Air 07/04/23 17:59 See admission H&P and DOD assessment. Principal Diagnosis Major Depressive Disorder, Recurrent, Severe, without Psychotic Features Psychiatric Data See daily stay summary. In short, safety was maintained and the patient was cooperative with care. Medication changes included increase of sertraline from 200 mg/day to 300 mg/day (with plan of further titration to 400 mg/day and they tolerated this well. A family session was not held and safety plan was completed prior to discharge. Day of Discharge Assessment Today the patient voices readiness for discharge. They note improvement in mood and deny thoughts to harm self or others. Thoughts remain organized and they are improved from admission. There is no evidence of psychosis. They agree to take mediations as prescribed and keep follow-up appointments. They are stable for discharge to outpatient level of care. Transition of Care Transition Of Care Record: was reviewed with the patient Advance Directives Advance Directives Information Provided: Yes Advance Directives: No Mental Health Advance Directive: No Advance Directives on File: No Living Will: No Power of Environmental Compliance Inspector: No Advance Directives Reason:: Declines as Mental Health Visit. Suicide Risk Level Suicide Risk Level: Low (q15 min observation checks) Suicide Risk Level Comments: denies any current suicidal thoughts; recent overdose, which she says was not intended to be suicidal but which caused cardiac conduction issues Risk Factors Assessment Male: No : Yes Do You Have Access To A Gun?: No Health Problems: No Mental Health Diagnoses: Yes Substance Use Disorders: No Previous Attempt: No Family History of Suicide: Yes Previous Psychiatric Hospitalization: No Hopelessness: No Protective Factors Assessment Catholic Beliefs: No : No Responsible for Young Children: No Employed: Yes Stable Relationships: Yes Supportive Family: Yes Good Rapport with Provider: Yes Tobacco Cessation at Discharge Tobacco Cessation Medication Prescribed at Discharge: Not Applicable/Non-Smoker Total Time Total Time Spent: Greater Than 30 Minutes Total Time Includes: Examination of the patient, Discharge Planning, Medication Reconciliation and As well as (documentation) Hospital Course (1) Major depressive disorder, recurrent, severe without psychotic features: (2) Obsessive compulsive disorder: (3) TOYIN (generalized anxiety disorder): (4) Intentional overdose: Plan The patient was admitted to the [facility]) on q15 min checks (behavioral with suicide precautions) for safety. The patient will participate in group, recreational, and milieu therapies and will be offered additional individual and family sessions as clinically appropriate. * increase sertraline to 300 mg daily, anticipate further titration following discharge * continue bupropion SR 100 mg QAM for now, though it's unclear to what extent she benefits from this * continue buspirone 10 mg BID for now, though it's unclear to what extent she benefits from this * resume trazodone 50 mg QHS PRN insomnia * bibliotherapy The Boy Who Couldn't Stop Washing by Nadia Vásquez MD Mental Health & Subst Abuse Tx Psychiatrist Name of Psychiatrist: Kathryn [facility] Psychiatrist's Time of Appointment with Psychiatrist: Please confirm your upcoming appointment after discharge. Psychiatric Appointment Comment: [address] [place], [place] Therapist Name of Therapist: Marito Devi Therapist's Time of Therapist Appointment: Please resume your regular outpatient therapy schedule. Therapy Appointment Comment: Kevin Flower, [place] [id number] Post Discharge Appointments Primary Care Physician Name Of Family Doctor/PCP: [facility] Primary Care Provider Appointment Comment: Please follow up with PCP as needed. Smoking Cessation Counseling Tobacco Cessation Medication Prescribed at Discharge: Not Applicable/Non-Smoker Contact Information Discharge Discharge Address: [address], [place], [place] Discharge Plan Discharge Items Patient Disposition: Home - Self-Care Reason For Visit: UNSPECIFIED DEPRESSIVE DISORDER Discharge Diagnosis: Major Depressive Disorder, Recurrent, Severe, without Psychotic Features Activity: Resume your previous activity Non-emergency contact: Primary Care Provider and Psychiatrist Call non-emergency contact if: you have any medication questions and your symptoms worsen Follow-up/Referrals: PCP,NO [Primary Care Provider] - Diet: Regular Addtl Attending Provider Instructions: SPECIAL CARE INSTRUCTIONS: 1. Follow through with your scheduled aftercare appointments. If unable to keep an appointment, please call to reschedule. 2. Take your medication only as prescribed. Medication should not be changed or stopped without the approval of your doctor. In the event of worsening symptoms or concerns about side effects, contact your doctor immediately. 3. Utilize new healthy coping skills, anger management skills, and stress management skills learned during your hospitalization. Journal feelings and process them with a support person. Identify stressors or situations that may result in relapse, deterioration or inappropriate behaviors and develop a plan to deal with those issues. 4. If your coping skills are ineffective and you are in crisis, contact your outpatient providers for direction. If unable to reach your providers, please call the [facility] CRISIS LINE AT , go to the [facility] walk-in center at [address], [address], [place], or go to the closest Emergency Room. 5. Avoid alcohol and un-prescribed drugs. 6. You have been provided with the Mental Health Advance Directives Pamphlet for your review. 7. Your condition is stable for discharge to outpatient level of care, but recovery is an ongoing process. Ifthoughts to harm yourself or others return, follow the safety plan developed during your stay. Planning for a safe return home includes securing weapons. Our treatment team recommends weaponsbe removed from the home until your outpatient provider reassesses your progress. In rare cases where the items themselvescannot be removed, guns and ammunitionshould be secured separatelyand keys stored by a reliable personoutside of the home. If you were admitted on an involuntary commitment, the police or other legal authorities may be involved in this process. AFTERCARE APPOINTMENTS: * Please call your insurance company prior to your scheduled appointment to confirm your aftercare providers are covered. Take your insurance information to your appointments. WHO TO CALL AND WHEN: Medical Emergencies: For questions or emergencies related to your hospital stay, please contact the Inpatient Behavioral Health Unit at [phone]. A grey stock recorder is on-call 02/06 for the Behavioral Health Unit for emergencies At any time you feel your situation is an emergency, you may also call 911 immediately. Bibliotherapy Strongly consider reading The Boy [employer]n't Stop Washing by Nadia Vásquez MD Pending Studies at Discharge: No Stand-Alone Forms: My [facility], Smoking Cessation Medications and DC Order Prescriptions: New sertraline 100 mg Tablet 300 mg PO QAM 30 Days Qty: 90 0RF Continued bupropion HCl 100 mg tablet sustained-release 12 hr 100 mg PO QAM buspirone 10 mg tablet 10 mg PO BID trazodone 50 mg Tablet 50 mg PO HS Discontinued sertraline 100 mg tablet 200 mg PO QAM Discharge Orders: Discharge Order (Routine); Ordered 07/06/23 Ordered By: Jann Maurer Admission Data Admit Date/Time: 07/04/23 17:11 Attending Provider: Willa Pineda Admit Provider: Willa Pineda Primary Care Provider: PCP,NO Coding Level of Care Code 51128 D/C day mgmt > 30 min Diagnoses Major depressive disorder, recurrent, severe without psychotic features F33.2 Obsessive compulsive disorder F42.9 TOYIN (generalized anxiety disorder) F41.1 Intentional overdose T50.902A Encounter type: initial encounter Time Spent (min) 47
== END 2023-07-06 14:21 | disposition home or self-care (01) | DRG 885 ==
LOC: 3S 17:11
DX: F42.9 Obsessive-compulsive disorder, unspecified; F41.1 Generalized anxiety disorder; F33.2 Major depressive disorder, recurrent severe without psychotic features; T43.212A Poisoning by selective serotonin and norepinephrine reuptake inhibitors, intentional self-harm, initial encounter; Z81.8 Family history of other mental and behavioral disorders; Z79.899 Other long term (current) drug therapy